=== PATIENT | male | born 1940 | race African-American/Black ===

== ENCOUNTER → 2016-02-22 | Day surgery (SDC) | payer OTHER ==
[~2016-02-22] MED LIST: AMLO10TA2; AMLO10TA2 PO; ASPI81TA44 PO; ATOR40TA59 PO; BUPR150T11 PO; CLOP75TA PO; Clonidine TD; DICL100G28; DILT180C29 PO; FAMO40TA57 PO; FENTANYL PF 100 MCG/2 ML VIAL. IV PRN; FINA5TAB4 PO; FLUT16SP NS; HYDR-2666; HYDR25TA9 PO; Hydrocodone/Acetaminophen PO; ISOS30TA4; ISOS30TA4 PO; IV RINGERS,LACTATED 1000ML 1,000 ML IV SCH; LIDOCAINE 1% 1 ML SYRINGE. ID PRN; LISI-334 PO; METO25TA4; METO25TA4 PO; MONT10TA9; OMEP40CA5 PO; ONDANSETRON PF 4 MG/2 ML VIAL. IV PRN; PRED20TA PO; PROCHLORPERAZINE 10 MG/2 ML VIAL. IV PRN; PROPOFOL 20 ML IV ONE
--- NOTE | 2016-02-22 09:55 | PDOC1 ---
HISTORY & PHYSICAL H&P Dimitris Felton 1940 02/03/2016 01:10 PM 02/13 [facility], [employer] OUR PATIENTS COME FIRST [address] [place] [address]. [phone] Patient: Dimitris Felton Date of : 1940 Date: 02/03/2016 1:10 PM Visit Type: Consult This 75 year old male presents for H/o colorectal polyp and H/o colon cancer. History of Present Illness: 1. H/o colorectal polyp Prior screening: colonoscopy. Risk Factors: personal history of colon cancer and h/o colon polyp. Pertinent negatives include abdominal pain, change in bowel habits, change in stool caliber, constipation, decreased appetite, diarrhea, melena, nausea, rectal bleeding, vomiting, weight gain and weight loss. Additional information: No family history of colon cancer, No family history of Crohn's/colitis, No NSAID/ASA use and Had colon polyp 2012 and a history of colon cancer in late . 2. H/o colon cancer Had colonic resection for colon cancer. Last colonoscopy 3013 had adenomatous colonic polyp. No complain now. No rectal bleeding. No constipation. No diarrhea. INTAKE COMMENTS: Intake Comments: Nurse Note: the pt is here today with a h/o colon polyps in 2012. PROBLEM LIST: Problem Description Onset Date Chronic Notes Essential hypertension 08/24/2011 Y Mapped from [facility] Chronic Conditions table on 09/02/2013 by the ICD9 to SNOMED Bulk Mapping Utility. The mapped diagnosis code was Hypertension, 401.9, added by Jessenia Coronado, with responsible provider Jessenia Coronado. Onset date 08/24/2011; last addressed on 02/15/2013. Hyperlipidemia 08/24/2011 Y Mapped from [facility] Chronic Conditions table on 2013 by the ICD9 to SNOMED Bulk Mapping Utility. The mapped diagnosis code was Hyperlipidemia, 272.4, added by Jessenia Coronado, with responsible provider Jessenia Coronado. Onset date 08/24/2011; last addressed on 02/15/2013. Hyperplasia of prostate 08/24/2011 Y Mapped from [facility] Chronic Conditions table on 09/02/2013 by the ICD9 to SNOMED Bulk Mapping Utility. The mapped diagnosis code was Prostatic hypertrophy, 600.90, added by Jessenia Coronado, with responsible provider Jessenia Coronado. Onset date 08/24/2011; last addressed on 06/01/2012. Coronary atherosclerosis 08/24/2011 Y Mapped from [facility] Chronic Conditions table on 09/02/2013 by the ICD9 to SNOMED Bulk Mapping Utility. The mapped diagnosis code was CAD (coronary artery disease), 414.00, added by Jessenia Coronado, with responsible provider Jessenia Coronado. Onset date 08/24/2011; last addressed on 04/2013. Gastroesophageal reflux disease 08/24/2011 Y Mapped from [facility] Chronic Conditions table on 09/02/2013 by the ICD9 to SNOMED Bulk Mapping Utility. The mapped diagnosis code was GERD (gastroesophageal reflux disease), 530.81, added by Jessenia Coronado, with responsible provider Jessenia Coronado. Onset date 08/24/2011; last addressed on 03/15/2013. Allergic rhinitis 08/24/2011 Y Mapped from [facility] Chronic Conditions table on 09/02 by the ICD9 to SNOMED Bulk Mapping Utility. The mapped diagnosis code was Allergic rhinitis, 477.9, added by Jessenia Coronado, with responsible provider Jessenia Coronado. Onset date 08/24/2011; last addressed on 08/24/2011. Osteoarthritis 08/24/2011 Y Mapped from [facility] Chronic Conditions table on 2013 by the ICD9 to SNOMED Bulk Mapping Utility. The mapped diagnosis code was Osteoarthritis, 715.90, added by Jessenia Coronado, with responsible provider Jessenia Coronado. Onset date 08/24/2011; last addressed on 02/15/2013. COPD (chronic obstructive pulmonary disease) 11/14/2014 Primary generalized (osteo)arthritis 10/08/2015 Polyarthralgia 10/08/2015 PSVT (paroxysmal supraventricular tachycardia) 09/02/2015 Benign hypertension with chronic kidney disease, stage III 06/26/2015 Y Low back pain 10/05/2015 Hypertensive kidney disease, stage III 09/02/2015 Y Bilateral knee pain 09/02/2015 Y PAST MEDICAL/SURGICAL HISTORY (Detailed) Disease/disorder Onset Date Management Date Comments 1993 Colectomy 1993 Right knee arthroscopy abdominal aortic aneurysm 10/2013 endovascular repair back surgery Benign prostatic hypertrophy Carcinoma of the colon 1994 surgery 1993 Coronary artery disease STENTS 2006 GERD Hyperlipidemia hyperparathyroidism partial parathyroidectomy Hypertension DIAGNOSTICS HISTORY: Test Ordered Interpretation Result completed ELECTROCARDIOGRAM, COMPLETE 10/03/[address] changes. no old EKG to compare. SB 10/03/2011 Colonoscopy 07/11/2012 abnormal Imp: diverticulosis of the colon, Colonic polyp( bx), BX: tubular adenoma 07/17/2012 Test Ordered Ordering Comments Modifier ELECTROCARDIOGRAM, COMPLETE 10/03/2011 Colonoscopy 07/11/2012 Medications (Active): Started Medication Directions Instruction Stopped 11/11/2015 amlodipine 10 mg tablet TAKE ONE TABLET BY MOUTH DAILY FOR BLOOD PRESSURE 10/05/2015 aspirin 81 mg tablet,delayed release take 1 tablet by oral route every day for heart 10/25/2013 Flonase 50 mcg/actuation nasal spray,suspension inhale 2 spray by Intranasal route every day in each nostril for allergies 11/11/2015 Imdur 30 mg tablet,extended release TAKE ONE TABLET BY MOUTH DAILY FOR HEART 11/11/2015 Lipitor 40 mg tablet TAKE ONE TABLET DAILY AT BEDTIME FOR CHOLESTEROL 11/11/2015 lisinopril 20 mg tablet TAKE (1) TABLET BY MOUTH TWICE DAILY FOR BLOOD PRESSURE 12/07/2015 metoprolol tartrate 25 mg tablet take 1 tablet by oral route 2 times every day 10/05/2015 Nitrostat 0.[address] 1 tablet (0.4MG) by sublingual route at the 1st sign of attack; may repeat every 5 min until relief ; if pain persists after 3 tablets in 15 min, prompt medical attention is recommended 11/11/2015 omeprazole 40 mg capsule,delayed release TAKE 1 CAPSULE ONCE A DAY BEFORE A MEAL FOR STOMACH oxycodone-acetaminophen 10 mg-325 mg tablet take 1 tablet by oral route every 6 hours as needed 11/11/2015 Plavix 75 mg tablet take 1 tablet by oral route every day 11/11/2015 Voltaren 1 % topical gel apply 4gram by topical route bid times every day to bilateral knees qid. 10/05/2015 Wellbutrin SR 150 mg tablet,sustained-release TAKE ONE TABLET BY MOUTH DAILY FOR DEPRESSION Allergies: Ingredient Reaction Medication Name Comment MORPHINE Hives/Skin Rash REVIEW OF SYSTEMS System Neg/Pos Details Constitutional Negative Chills, fever, malaise, weight gain and weight loss. ENMT Negative Sore throat. Eyes Negative Double vision. Respiratory Negative Dyspnea and wheezing. Cardio Negative Chest pain and irregular heartbeat/palpitations. GI Positive See HPI. GI Negative Abdominal pain, change in bowel habits, change in stool caliber, constipation, decreased appetite, diarrhea, melena, nausea, see HPI, rectal bleeding and vomiting. Negative Dysuria and hematuria. Endocrine Negative Cold intolerance and heat intolerance. Psych Negative Anxiety. Integumentary Negative Hives and rash. MS Negative Joint pain. Blake/Lymph Negative Easy bleeding and easy bruising. Allergic/Immuno Negative Food allergies. VITAL SIGNS Time BP mm/Hg Pulse /min Resp /min Temp F Ht ft Ht in Ht cm Wt lb Wt kg BMI kg/ m2 BSA m2 O2 Sat% 1:02 PM 136/72 74 97.5 6.0 3.00 190.50 234.20 106.231 29.27 97 MEASURED BY Time Measured by 1:02 PM Kelle Whyte PHYSICAL EXAM: Exam Findings Details Constitutional Normal Well developed. Eyes Normal Conjunctiva - Right: Normal, Left: Normal. Sclera - Right: Normal, Left: Normal. Nasopharynx Normal Lips/teeth/gums - Normal. Neck Exam Normal Inspection - Normal. Thyroid gland - Normal. Respiratory Normal Inspection - Normal. Auscultation - Normal. Cardiovascular Normal Regular rate and rhythm. No murmurs, gallops, or rubs. Vascular Normal Pulses - Carotids: Normal, Femoral: Normal, Dorsalis pedis: Normal. Abdomen Normal Inspection - Normal. Anterior palpation - No guarding. No abdominal tenderness. No hepatic enlargement. No splenic enlargement. No hernia. No ascites. Skin Normal Inspection - Normal. Extremity Normal No edema. Psychiatric * Oriented to time, place, person and situation. Psychiatric Normal Appropriate mood and effect. Assessment/Plan # Detail Type Description 1. Assessment History of colon cancer (Z85.038). Patient Plan await colonoscopy results. 2. Assessment History of colon polyps (Z86.010). [place] [facility] [place] Further diagnostic evaluations ordered today include(s) Colonoscopy to be performed today. He is to schedule a follow-up visit with Keila Coronado MD upon completion of work-up Electronically signed by: Keila Coronado MD 02/03/2016 02:28 PM Document generated by: Keila Coronado 02/03/2016 02:28 PM Arabella Painting MD, Family Practice; Willy Cordero MD Internal Medicine; Scottie Sorenson MD, Internal Medicine; Jessenia Coronado MD Internal Medicine; Keila Coronado MD, Gastroenterology; Marco Barr MD, Rheumatology, S. Ian Farris, Physical Medicine/Rehab Mahogany Patten APRN ------ \ 02/22/16 Patient seen and examined. No change in history and physical KEILA CORONADO MD Feb 22, 2016 09:55
--- NOTE | 2016-02-22 10:21 | PDOC4 ---
GI OP Report - Dr. Mott Date/Time DATE: 02/22/16 TIME: 10:19 Attending Physician Charly Mott MD Referring Physician Indications Personal history of malignant neoplasm of the colon Pre-Op See the Anesthesia note for documentation of the administered medications Procedures Colonoscopy Findings - Diverticulosis in the sigmoid colon and in the descending colon. - The examination was otherwise normal on direct and retroflexion views. - No specimens collected Plan - Discharge patient to home. - Patient has a contact number available for emergencies. The signs and symptoms of potential delayed complications were discussed with the patient. Return to normal activities tomorrow. Written discharge instructions were provided to the patient. - Resume regular diet. - Continue present medications. - Repeat colonoscopy in 3 years for surveillance. - Return to my office as needed. CHARLY MOTT MD Feb 22, 2016 10:21
[2016-02-22 10:30] VITALS: BP 153/98
== END | disposition home or self-care (01) ==
LOC: SURG 08:56
PROVIDERS: ATTEND Internal Medicine Gastroenterology
DX: K57.30 Diverticulosis of large intestine without perforation or abscess without bleeding (principal); I50.9 Heart failure, unspecified; E78.00 Pure hypercholesterolemia, unspecified; I10 Essential (primary) hypertension; E66.9 Obesity, unspecified; K21.9 Gastro-esophageal reflux disease without esophagitis; F17.200 Nicotine dependence, unspecified, uncomplicated; T82.897A Other specified complication of cardiac prosthetic devices, implants and grafts, initial encounter
CPT/HCPCS: 45378; J2704

== ENCOUNTER 2016-02-29 08:08 | Inpatient (IN) | payer OTHER ==
[~2016-02-29] VITALS: Ht 193 cm; Wt 107.2 kg
[~2016-02-29 08:08] MED LIST changes: -FENTANYL PF 100 MCG/2 ML VIAL. IV PRN; -IV RINGERS,LACTATED 1000ML 1,000 ML IV SCH; -LIDOCAINE 1% 1 ML SYRINGE. ID PRN; -ONDANSETRON PF 4 MG/2 ML VIAL. IV PRN; -PROCHLORPERAZINE 10 MG/2 ML VIAL. IV PRN; -PROPOFOL 20 ML IV ONE
[2016-02-29] MEDS ORDERED: ASPIRIN 81 MG TAB.CHEW PO ONE (08:30)
[2016-02-29] MEDS ORDERED: DILTIAZEM IV PUSH 25 MG/5 ML VIAL. IVP ONE (08:30)
[2016-02-29] MEDS ORDERED: DILTIAZEM 125 MG in IV DEXTROSE 5% 100 ML IV PRN (08:30)
[2016-02-29] MEDS ORDERED: ADENOSINE 6 MG/2 ML VIAL IV ONE ×2 (08:30→08:45)
--- NOTE | 2016-02-29 08:42 | PHYS DOC ---
Past Medical History Past Medical History: Cancer, High Cholesterol, Hypertension, NC, Other Additional Past Medical Histor: SVT ,colon cancer, abd aneurysm Past Surgical History: Other Additional Past Surgical Histo: colon cancer resection, cardiac stents, aneurysm repair (10/21/13) Alcohol Use: None Drug Use: None Adult General Chief Complaint Chief Complaint: CHEST PAIN HPI HPI Patient is a 75 year old male who presents with chest pain and SOB. Patient reports symptoms began ~0700 without provocation. He describes a substernal pressure without clear mitigating factors. He has not taken anything for symptoms at home. Has had prior similar episodes. Noted to be tachycardic (HR ~ 150) upon arrival; chart review shows h/o SVT, but it appears that he is no longer taking a beta patrick or CCB as it caused an issue (?bradycardia). Review of Systems Review of Systems Constitutional: Denies fever or chills Eyes: Denies change in visual acuity or eye pain HENT: Denies nasal congestion or sore throat Respiratory: Shortness of breath Cardiovascular: Chest pain, palpitations GI: Denies abdominal pain, nausea, vomiting, bloody stools or diarrhea : Denies dysuria or hematuria Musculoskeletal: Denies back pain or joint pain Integument: Denies rash or skin lesions Neurologic: Denies headache, focal weakness or sensory changes Current Medications Current Medications Current Medications Medications (Trade) Dose Ordered Sig/Avery Start Time Stop Time Status Last Admin Dose Admin Acetaminophen (Tylenol) 650 mg PRN Q4HRS PRN 02/29/16 09:30 03/01/16 09:29 Adenosine (Adenocard) 12 mg 1X ONCE 02/29/16 08:45 02/29/16 08:46 DC 02/29/16 08:42 12 MG Amlodipine Besylate (Norvasc) 10 mg HS 02/29/16 21:00 UNV Aspirin (Children'S Aspirin) 81 mg [id number] 03/01/16 08:00 UNV Atorvastatin Calcium (Lipitor) 40 mg HS 02/29/16 21:00 UNV Bupropion HCl (Wellbutrin Sr) 150 mg DAILY 03/01/16 09:00 UNV Clonidine HCl (Catapres Tts-2) 1 patch WEEKLY 03/07/16 09:00 UNV Clopidogrel Bisulfate (Plavix) 75 mg DAILY 03/01/16 09:00 UNV Diclofenac Sodium (Voltaren) 1 gisell QID 02/29/16 13:00 UNV Diltiazem HCl 10 mg 10 mg 1X ONCE 02/29/16 08:30 02/29/16 08:35 DC 02/29/16 09:02 10 MG Diltiazem HCl/ Dextrose (Cardizem) 125 ml @ 0 mls/hr CONT PRN 02/29/16 08:30 02/29/16 09:06 5 MLS/HR Fentanyl Citrate (Fentanyl 2ml Vial) 50 mcg PRN Q1HR PRN 02/29/16 09:30 Finasteride (Proscar) 5 mg HS 02/29/16 21:00 UNV Fluticasone Propionate (Flonase) 2 spray DAILY 03/01/16 09:00 UNV Isosorbide Mononitrate (Imdur) 30 mg DAILY 03/01/16 09:00 UNV Lisinopril (Prinivil) 20 mg BID 02/29/16 21:00 UNV Magnesium Oxide (Magnesium Oxide) 400 mg 1X ONCE 02/29/16 09:30 02/29/16 09:33 DC 02/29/16 10:10 400 MG Metoprolol Tartrate (Lopressor) 25 mg BID 02/29/16 21:00 UNV Montelukast Sodium (Singulair) 10 mg HS 02/29/16 21:00 UNV Ondansetron HCl (Zofran) 4 mg PRN Q8HRS PRN 02/29/16 09:30 03/01/16 09:29 Oxycodone/ Acetaminophen (Percocet 10/325) 1 tab PRN Q6HRS PRN 02/29/16 10:00 UNV Pantoprazole Sodium (Protonix) 40 mg DAILY 03/01/16 09:00 UNV Allergies Allergies Allergies Coded Allergies Type Severity Reaction Last Updated Verified morphine Allergy Intermediate "Hives" 02/22/16 Yes pneumococcal vaccine Adverse Reaction Intermediate Swelling 02/22/16 Yes Physical Exam Physical Exam Constitutional: Well developed, well nourished, non-toxic appearance HENT: Normocephalic, atraumatic, bilateral external ears normal Eyes: EOMI, conjunctiva normal, no discharge Neck: Normal range of motion, no stridor Cardiovascular: Tachycardic to 150, regular rhythm, no murmur Lungs & Thorax: Bilateral breath sounds clear to auscultation Abdomen: Bowel sounds normal, soft, non-distended, no TTP Skin: Warm, dry, no erythema, no rash Extremities: No obvious deformity, no edema Neurologic: Alert and oriented X 3, no gross deficits noted Current Patient Data Vital Signs Vital Signs Date Time Temp Pulse Resp B/P Pulse Ox O2 Delivery O2 Flow Rate FiO2 02/29/16 09:02 108 130/79 02/29/16 08:15 97.5 20 Room Air 97.5 Lab Values Laboratory Tests Test 02/29/16 08:55 White Blood Count 6.9x10^3/uL (4.0-11.0) Red Blood Count 4.72x10^6/uL (4.30-5.70) Hemoglobin 13.1g/dL (13.0-17.5) Hematocrit 41.3% (39.0-53.0) Mean Corpuscular Volume 88fL (79-100) Mean Corpuscular Hemoglobin 28pg (25-35) Mean Corpuscular Hemoglobin Concent 32g/dL (31-37) Red Cell Distribution Width 15.3% (11.5-14.5) H Platelet Count 128x10^3/uL (140-400) L Neutrophils (%) (Auto) 77% (31-73) H Lymphocytes (%) (Auto) 12% (24-48) L Monocytes (%) (Auto) 8% (0-9) Eosinophils (%) (Auto) 2% (0-3) Basophils (%) (Auto) 1% (0-3) Neutrophils # (Auto) 5.3x10^3uL (1.8-7.7) Lymphocytes # (Auto) 0.9x10^3/uL (1.0-4.8) L Monocytes # (Auto) 0.5x10^3/uL (0.0-1.1) Eosinophils # (Auto) 0.2x10^3/uL (0.0-0.7) Basophils # (Auto) 0.1x10^3/uL (0.0-0.2) Sodium Level 140mmol/L (136-145) Potassium Level 4.2mmol/L (3.5-5.1) Chloride Level 104mmol/L (98-107) Carbon Dioxide Level 27mmol/L (21-32) Anion Gap 9 (6-14) Blood Urea Nitrogen 21mg/dL (8-26) Creatinine 2.2mg/dL (0.7-1.3) H Estimated GFR (Cockcroft-Gault) 35.6 Glucose Level 139mg/dL (70-99) H Calcium Level 9.0mg/dL (8.5-10.1) Magnesium Level 1.7mg/dL (1.8-2.4) L Troponin I Quantitative < 0.017ng/mL (0.000-0.055) Thyroid Stimulating Hormone (TSH) 1.048uIU/mL (0.358-3.74) Laboratory Tests 02/29/16 08:55 Laboratory Tests 02/29/16 08:55 EKG EKG EKG - initial (my read): narrow complex tachycardia - SVT, rate 152, LAD, nonspecific ST changes EKG - after adenosine boluses (my read): sinus rhythm, rate 101, LAD, intervals wnl, nonspecific ST changes Radiology/Procedures Radiology/Procedures CXR: IMPRESSION: Volume loss in the left lower lobe compatible with atelectasis or pneumonia. Course & Med Decision Making Course & Med Decision Making Pertinent Labs and Imaging studies reviewed. (See chart for details) Patient is 75 year old male who presents with CP and SOB. Noted to have SVT with rate ~150. EKG, CXR, labs ordered. Patient given ASA. 6mg adenosine given with no change; additional 12mg given with subsequent conversion to sinus rhythm with rate 100-110. However his heart rate started to creep higher, so cardizem bolus given and gtt started with good results. Labs notable for mild hypomagnesemia, oral replacement ordered. CXR read as above; as patient does not have symptoms of pneumonia, no leukocytosis, no fever, will not treat. Discussed results with patient. Discussed with Dr. Mott, will admit under his care for further treatment and evaluation. Cardiology consult entered. Arlineon Disclaimer Dragon Disclaimer This electronic medical record was generated, in whole or in part, using a voice recognition dictation system. Departure Departure Impression: Primary Impression: SVT (supraventricular tachycardia) Disposition: ADMITTED INPATIENT Admitting Physician: Viky Mott Condition: STABLE Referrals: VIKY MOTT MD (PCP) KYUNG DENNEY MD Feb 29, 2016 08:42
[2016-02-29 09:03] LABS: BASO # 0.1 x10^3/uL (0.0-0.2); BASO % 1 % (0-3); EOS % 2 % (0-3); HEMATOCRIT 41.3 % (39.0-53.0); HEMOGLOBIN 13.1 g/dL (13.0-17.5); LYMPH # 0.9 x10^3/uL (1.0-4.8); LYMPH % 12 % (24-48); MEAN CORPUSCULAR HEMOGLOBIN 28 pg (25-35); MEAN CORPUSCULAR HGB CONC 32 g/dL (31-37); MEAN CORPUSCULAR VOLUME 88 fL (79-100); MONO % 8 % (0-9); NEUT % 77 % (31-73); PLATELET COUNT 128 x10^3/uL (140-400); RED BLOOD COUNT 4.72 x10^6/uL (4.30-5.70); RED CELL DISTRIBUTION WIDTH 15.3 % (11.5-14.5); WHITE BLOOD COUNT 6.9 x10^3/uL (4.0-11.0)
[2016-02-29 09:12] LABS: CREATININE 2.2 mg/dL (0.7-1.3); GFR 35.6; MAGNESIUM 1.7 mg/dL (1.8-2.4); POTASSIUM 4.2 mmol/L (3.5-5.1)
[2016-02-29] MEDS ORDERED: FENTANYL PF 100 MCG/2 ML VIAL. IV PRN (09:30)
[2016-02-29] MEDS ORDERED: MAGNESIUM OXIDE 400 MG TABLET PO ONE (09:30)
[2016-02-29] MEDS ORDERED: ACETAMINOPHEN 325 MG TABLET. PO PRN (09:30)
[2016-02-29] MEDS ORDERED: ONDANSETRON PF 4 MG/2 ML VIAL. IV PRN (09:30)
--- NOTE | 2016-02-29 09:43 | PDOC ---
Provider Note Provider Note Patient seen in ER.H&P to follow. The patient was seen and examined by me. Chart reviewed and plan of care formulated. Discussed with, reviewed and agree with DENTAL ASSISTING INSTRUCTOR's notes, plan of care and orders with modifications as necessary. For more details regarding further plans, please refer to the orders. VIKY MOTT MD Feb 29, 2016 09:43
--- NOTE | 2016-02-29 09:44 | RAD ---
Indication chest pain. Shortness of breath. A single view of the chest was obtained. Comparison is made to an examination 11/29/2015. The heart and pulmonary vessels are within normal limits. There is volume loss in the left lower lobe compatible with atelectasis or pneumonia. The right lung appears clear. Significant pleural fluid is not seen. There is no pneumothorax. IMPRESSION: Volume loss in the left lower lobe compatible with atelectasis or pneumonia.
--- NOTE | 2016-02-29 09:58 | EKG ---
[facility] [address] [place] [address] Test Date: 2016-02-29 Test Time: 08:16:02 Pat Name: LIAM MOSELEY Department: Room: Gender: M Bureau Director: : 1940 Requested By: KYUNG DENNEY Order Number: [id number] Reading MD: Demetria Black Measurements Intervals [place] Rate: 152 P: ID: QRS: -5 QRSD: 80 T: 50 QT: 290 QTc: 468 Interpretive Statements SUPRAVENTRICULAR TACHYCARDIA LEFTWARD AXISI ABNORMAL EKG Electronically Signed On 03-01-2016 9:39:24 ATOMIC PHYSICS PROFESSOR by Demetria Black
--- NOTE | 2016-02-29 09:59 | EKG ---
[facility] [address] [place] [address] Test Date: 2016-02-29 Test Time: 08:35:48 Pat Name: LIAM MOSELEY Department: Room: Gender: M Air Traffic Controller Center: : 1940 Requested By: KYUNG DENNEY Order Number: [id number] Reading MD: Demetria Black Measurements Intervals [place] Rate: 101 P: 7 MI: 182 QRS: -3 QRSD: 80 T: 66 QT: 334 QTc: 439 Interpretive Statements SINUS TACHYCARDIA LEFT ATRIAL ABNORMALITY LEFTWARD AXIS ABNORMAL ECG Electronically Signed On 03-01-2016 9:40:04 WHIRLEY OPERATOR by Demetria Black
[2016-02-29] MEDS ORDERED: OXYCODONE/APAP 10/325 TABLET. PO PRN (10:00)
[2016-02-29] MEDS ORDERED: METOPROLOL TART IMMED RELEASE 25 MG TABLET PO SCH (11:00)
[2016-02-29] MEDS ORDERED: CLONIDINE TTS-2 PATCH TD SCH (11:00)
[2016-02-29] MEDS ORDERED: CLOPIDOGREL BISULFATE 75 MG TABLET PO SCH (11:00)
[2016-02-29 11:27] VITALS: BP 131/84
[2016-02-29] MEDS: ASPIRIN 81 MG TAB.CHEW PO SCH (11:30)
--- NOTE | 2016-02-29 11:56 | PDOC2 ---
MORELIA CHÁVEZ SHUTTLER CAR 02/29/16 1156: CARDIAC CONSULT DATE OF CONSULT Date of Consult DATE: 02/29/16 TIME: 11:40 REASON FOR CONSULT Reason for Consult: SVT REFERRING PHYSICIAN Referring Physician: Chema SOURCE Source: Chart review, Patient HISTORY OF PRESENT ILLNESS HISTORY OF PRESENT ILLNESS This is a pleasant 75 yo male admitted for complains of palpitations. Reports that this morning around 0730 at rest, he started feeling like he has burp that would not come out and felt it stuck in his throat. Associated with this was nausea, diaphoresis, SOA, and mid chest tightness. This was intermittent until he got to ED in which he was noted with SVT that was treated successfully after 2nd adenosine converted to SR. He does drink caffeinated beverages but none too excessive. He smokes marijuana daily and has quit tobacco about 2 months ago. Denies a EOTH use and other recreational drugs. He failed to follow up in our office after his last admission last yr with the same problem and also to establish EP referral. He did end up with appointment with an EP about 2 months ago but denied to be seen due to insurance coverage. Upon admission in ED he was also given cardizem bolus and so far no notable bradycardia was seen which was the problem on his previous admission promoting discontinuation of BB as well as CCB and switched to norvasc. Currently he denies any discomfort. Denies any fever or chills. He did slipped on ice 3 days ago with no apparent injury. Denies any long distance travels and for the most part he does not have any significant changes to his activity tolerance. To add he recently had colonoscopy on 02/22/2016 which was ok and tolerated bowel prep. PAST MEDICAL HISTORY Past Medical History Cardiovascular: HTN, MS (with previous PCI - 2012), Hyperlipidemia, Valve insufficiency (mild MR/TR/AR), Other (PSVT; AAA with previous EVAR - 2013) Pulmonary: No pertinent hx CENTRAL NERVOUS SYSTEM: Other GI: Other (colon cancer with previous colon resection ), diverticulosis Heme/Onc: No pertinent hx Hepatobiliary: No pertinent hx Psych: No pertinent hx Musculoskeletal: Osteoarthritis Rheumatologic: No pertinent hx Infectious disease: No pertinent hx ENT: No pertinent hx Renal/: Chronic renal insuff (stage III), Benign prostatic enlarg., Other ( atrophic right kidney) Endocrine: No pertinent hx Dermatology: No pertinent hx PAST SURGICAL HISTORY Past Surgical History thyroid surgery, PCI, EVAR, 02/22/2016 colonoscopy FAMILY HISTORY Family History: Coronary Artery Disease SOCIAL HISTORY Social History Smoke: Quit 2 months ago. <1 pack per day (has smoked since age 16; max amt was 1 ppd; now about 8 cigarettes/day) ALCOHOL: none Drugs: Marijuana Lives: with Family CURRENT MEDICATIONS CURRENT MEDICATIONS Current Medications Medications (Trade) Dose Ordered Sig/Avery Route PRN Reason Start Time Stop Time Status Last Admin Dose Admin Aspirin (Children'S Aspirin) 324 mg 1X ONCE PO 02/29/16 08:30 02/29/16 08:35 DC 02/29/16 08:59 Adenosine (Adenocard) 6 mg 1X ONCE IV 02/29/16 08:30 02/29/16 08:35 DC 02/29/16 08:33 Diltiazem HCl 10 mg 10 mg 1X ONCE IVP 02/29/16 08:30 02/29/16 08:35 DC 02/29/16 09:02 Diltiazem HCl/ Dextrose (Cardizem) 125 ml @ 0 mls/hr CONT PRN IV SEE I/O RECORD 02/29/16 08:30 02/29/16 09:06 Adenosine (Adenocard) 12 mg 1X ONCE IV 02/29/16 08:45 02/29/16 08:46 DC 02/29/16 08:42 Magnesium Oxide (Magnesium Oxide) 400 mg 1X ONCE PO 02/29/16 09:30 02/29/16 09:33 DC 02/29/16 10:10 ALLERGIES ALLERGIES: Coded Allergies: morphine (Verified Allergy, Intermediate, "Hives", 02/22/16) pneumococcal vaccine (Verified Adverse Reaction, Intermediate, Swelling, ) ROS Review of System 14 point ROS evaluated with pertinent positives noted per HPI PHYSICAL EXAM General: Alert, Oriented X3, Cooperative, No acute distress HEENT: Atraumatic, Mucous membr. moist/pink Lungs: Clear to auscultation, Normal air movement Heart: Regular rate, Normal S1, Normal S2, Other (2/6 systolic murmur to LLS border) Abdomen: Soft Extremities: No cyanosis, No edema Skin: No rashes, No breakdown, No significant lesion Neuro: Normal speech, Sensation intact Psych/Mental Status: Mental status NL, Mood NL MUSCULOSKELETAL: Full range of motion without pain, Osteoarthritic changes both hands VITALS VITALS Vital Signs Date Time Temp Pulse Resp B/P Pulse Ox O2 Delivery O2 Flow Rate FiO2 02/29/16 11:27 97.7 80 20 131/84 98 Room Air 97.7 LABS Lab: Laboratory Tests Test 02/29/16 08:55 White Blood Count 6.9x10^3/uL (4.0-11.0) Red Blood Count 4.72x10^6/uL (4.30-5.70) Hemoglobin 13.1g/dL (13.0-17.5) Hematocrit 41.3% (39.0-53.0) Mean Corpuscular Volume 88fL (79-100) Mean Corpuscular Hemoglobin 28pg (25-35) Mean Corpuscular Hemoglobin Concent 32g/dL (31-37) Red Cell Distribution Width 15.3% (11.5-14.5) Platelet Count 128x10^3/uL (140-400) Neutrophils (%) (Auto) 77% (31-73) Lymphocytes (%) (Auto) 12% (24-48) Monocytes (%) (Auto) 8% (0-9) Eosinophils (%) (Auto) 2% (0-3) Basophils (%) (Auto) 1% (0-3) Neutrophils # (Auto) 5.3x10^3uL (1.8-7.7) Lymphocytes # (Auto) 0.9x10^3/uL (1.0-4.8) Monocytes # (Auto) 0.5x10^3/uL (0.0-1.1) Eosinophils # (Auto) 0.2x10^3/uL (0.0-0.7) Basophils # (Auto) 0.1x10^3/uL (0.0-0.2) Sodium Level 140mmol/L (136-145) Potassium Level 4.2mmol/L (3.5-5.1) Chloride Level 104mmol/L (98-107) Carbon Dioxide Level 27mmol/L (21-32) Anion Gap 9 (6-14) Blood Urea Nitrogen 21mg/dL (8-26) Creatinine 2.2mg/dL (0.7-1.3) Estimated GFR (Cockcroft-Gault) 35.6 Glucose Level 139mg/dL (70-99) Calcium Level 9.0mg/dL (8.5-10.1) Magnesium Level 1.7mg/dL (1.8-2.4) Troponin I Quantitative < 0.017ng/mL (0.000-0.055) Thyroid Stimulating Hormone (TSH) 1.048uIU/mL (0.358-3.74) ECHOCARDIOGRAM ECHOCARDIOGRAM <Conclusion> Left ventricle systolic function is normal. The Ejection Fraction is estimated at 65-70%. Transmitral Doppler flow pattern is Grade I-abnormal relaxation pattern. There is normal LV segmental wall motion. Trace aortic regurgitation. Trace to mild mitral regurgitation. Trace tricuspid regurgitation. There is no evidence of significant pericardial effusion. DATE: 08/28/15 1520 STRESS TEST STRESS TEST Conclusion 1. No evidence of EKG changes with stress. 2. Normal myocardial perfusion at stress/rest. 3. Low risk study. 4. Normal EF at > 70%. DATE: 12/01/15 1243 ASSESSMENT/PLAN ASSESSMENT/PLAN 1. PSVT with prior multiple hx and failed follow up (see HPI) Corrected by second dose of adenosine with addition of cardizem bolus, currently on IV cardizem Now on SR. Antiarrhythmics held in the past due to significant bradycardia. I would suspect due to simultaneous use of cardizem, metoprolol and clonidine. Will DC IV cardizem and start on IR 30 mg q6hrs. Will monitor and note response for any bradyarrhythmias. Will carry out event monitor to be initiated prior to DC, 2 week outpt monitoring pending result of overnight monitoring. then will make EP referral Discussed significantly about treatment plan with pt and adherence to plan and also would emphasize physical maneuvers to abort any PSVT episodes. 2. Chest pain Related to palpitations Recent MPI 11/2015 unremarkable for perfusion defects. Recent TTE with normal EF and wall motion. 3. HTN Stop amlodipine, continue on lisinopril and start on cardizem IR. Verified no antiarrhythmics through [facility]. Will try to compare with outpt PCP's list when available. Discussed with pt and clearly report no longer using clonidine patch. 4. HLD on statin 5. tobacco abuse smoking cessation advised and reinforced and stopped 2 months ago 6. AAA with previous EVAR 10/2013 7. CKD, stage III 8. Substance abuse Daily use of marijuana Discussed cessation. 9. Low back pain On chronic opioid use On ASA. Plavix on hold due to planned outpt epidural injection. 10. Hypomagnesemia Replace Mg. Problems: TAWANDA NELSON MD 02/29/16 1710: CARDIAC CONSULT ALLERGIES ALLERGIES: Coded Allergies: morphine (Verified Allergy, Intermediate, "Hives", 02/22/16) pneumococcal vaccine (Verified Adverse Reaction, Intermediate, Swelling, ) ASSESSMENT/PLAN ASSESSMENT/PLAN Patient seen and examined. Agree with PUPIL PERSONNEL SERVICES DIRECTOR's assessment and plan. Patient with recurrent SVT, presently back in sinus rhythm. Start flecainide for rhythm maintenance. Continue Cardizem. We will consider outpatient referral to EP for possible ablation. Chest pain most probably secondary to tachycardia. Recent stress test did not show any significant ischemia. Thank you for your consultation. Problems: MORELIA CHÁVEZ APRN Feb 29, 2016 11:56 TAWANDA NELSON MD Feb 29, 2016 17:10
[2016-02-29] MEDS ORDERED: MAGNESIUM SULFATE 1GM 100 ML IV ONE (12:00)
[2016-02-29 15:00] VITALS: BP 121/67
[2016-02-29] MEDS: DILTIAZEM HCL 30 MG TABLET PO SCH ×3 (15:16→23:34)
[2016-02-29] MEDS: buPROPion SR 150 MG TABLET.SA PO SCH (15:16)
[2016-02-29] MEDS: PANTOPRAZOLE 40 MG TABLET. PO SCH (15:17)
[2016-02-29] MEDS: ISOSORBIDE MONONITRATE ER 30 MG TAB.ER.24H PO SCH (15:17)
[2016-02-29] MEDS: LISINOPRIL 20 MG TABLET PO SCH ×2 (15:17→21:14)
[2016-02-29] MEDS: DICLOFENAC SODIUM 1% TOPICAL GEL 100GM TUBE. TP SCH ×3 (15:18→21:15)
[2016-02-29] MEDS: FLUTICASONE 50MCG/NASAL SPRAY 16GM BOTTLE. NS SCH (15:21)
--- NOTE | 2016-02-29 18:14 | PDOC1 ---
JOSE ROBERTO ROSE ELECTRONIC SPECIALIST 02/29/161812: HISTORY AND PHYSICAL Chief Complaint Chief Complaint This 75 year old male has been admitted with a chief complaint of chest pain. He reports onset of needing to belch at 7am today and could not. He then began sweating, developed substernal chest pain radiating into neck/ throat and dyspnea. Negative for nausea. He was brought to [facility] per private vehicle and when telemetry obtained he was in SVT 150s. He was given Adenosine x2 doses, loading dose Cardizem IV and infusion started. Currently he is SR rate 80s in the ED. A CXR was negative. Troponin negative and EKG non spec ST changes. Mg 1.7 with Mag Ox 400mg po given. TSH WNL. The ER physician note indicates he is not taking amlodipine nor metoprolol. Per our office records both the medications are to still be current. He is admitted to [facility] and cardiology has been consulted. Problem List Problems Medical Problems: (1) Chest pain Status: Acute (2) SOB (shortness of breath) Status: Acute (3) SVT (supraventricular tachycardia) Status: Acute (4) SVT (supraventricular tachycardia) Status: Acute Past Medical History Cardiovascular: CAD, HTN, [place], Hyperlipidemia, Valve insufficiency (mild MR, trace AR ), Other (AAA 5.8cm endograft +) CENTRAL NERVOUS SYSTEM: Other GI: Other Heme/Onc: Cancer (colon cancer with h/o resection/chemoradiation post) Musculoskeletal: Osteoarthritis (severe bilateral knees) Renal/: Chronic renal insuff (CKD III), Benign prostatic enlarg., Other ( atrophic R kidney ) Endocrine: Hyperparathyroidism (secondary to CKD III) Past Surgical History Past Surgical History: Other (endograft 10/2013) Past Family History Family History: Coronary Artery Disease Past Social History PSH former tobacco, no ETOH or illicit drug use Review of Symptoms Review of Symptoms A 14 point ROS was completed with the following noted as positive: R UE tingling , pin pricking sensation, chest pain substernal with radiation to neck/throat, need to belch and could not, +dyspnea, + sweating Other systems reviewed and negative. Medications Medications reviewed and reconciled. Allergy Allergies Coded Allergies Type Severity Reaction Last Updated Verified morphine Allergy Intermediate "Hives" 02/22/16 Yes pneumococcal vaccine Adverse Reaction Intermediate Swelling 02/22/16 Yes Physical Exam Physical Exam General appearance - alert,well appearing, and in no distress Mental Status - alert, oriented to person, place, and time, affect appropriate to mood Head - normal Chest - clear to auscultation, no wheezes, rales or rhonchi, symmetric air entry Heart - S1 and S2 normal Abdomen - soft, nontender, nondistended, no masses or organomegaly Neurological - no acute focal neurological deficit Musculoskeletal - no muscular tenderness noted Extremities - no pedal edema Skin - warm and dry VTE Prophylaxis Ordered VTE Prophylaxis Devices: No VTE Pharmacological Prophylaxi: No Assessment Labs Laboratory Tests Test 02/29/16 08:55 02/29/16 15:14 White Blood Count 6.9x10^3/uL (4.0-11.0) Red Blood Count 4.72x10^6/uL (4.30-5.70) Hemoglobin 13.1g/dL (13.0-17.5) Hematocrit 41.3% (39.0-53.0) Mean Corpuscular Volume 88fL (79-100) Mean Corpuscular Hemoglobin 28pg (25-35) Mean Corpuscular Hemoglobin Concent 32g/dL (31-37) Red Cell Distribution Width 15.3% (11.5-14.5) Platelet Count 128x10^3/uL (140-400) Neutrophils (%) (Auto) 77% (31-73) Lymphocytes (%) (Auto) 12% (24-48) Monocytes (%) (Auto) 8% (0-9) Eosinophils (%) (Auto) 2% (0-3) Basophils (%) (Auto) 1% (0-3) Neutrophils # (Auto) 5.3x10^3uL (1.8-7.7) Lymphocytes # (Auto) 0.9x10^3/uL (1.0-4.8) Monocytes # (Auto) 0.5x10^3/uL (0.0-1.1) Eosinophils # (Auto) 0.2x10^3/uL (0.0-0.7) Basophils # (Auto) 0.1x10^3/uL (0.0-0.2) Sodium Level 140mmol/L (136-145) Potassium Level 4.2mmol/L (3.5-5.1) Chloride Level 104mmol/L (98-107) Carbon Dioxide Level 27mmol/L (21-32) Anion Gap 9 (6-14) Blood Urea Nitrogen 21mg/dL (8-26) Creatinine 2.2mg/dL (0.7-1.3) Estimated GFR (Cockcroft-Gault) 35.6 Glucose Level 139mg/dL (70-99) Calcium Level 9.0mg/dL (8.5-10.1) Magnesium Level 1.7mg/dL (1.8-2.4) Troponin I Quantitative < 0.017ng/mL (0.000-0.055) 0.022ng/mL (0.000-0.055) Thyroid Stimulating Hormone (TSH) 1.048uIU/mL (0.358-3.74) Laboratory Tests Test 02/29/16 08:55 02/29/16 15:14 White Blood Count 6.9x10^3/uL (4.0-11.0) Red Blood Count 4.72x10^6/uL (4.30-5.70) Hemoglobin 13.1g/dL (13.0-17.5) Hematocrit 41.3% (39.0-53.0) Mean Corpuscular Volume 88fL (79-100) Mean Corpuscular Hemoglobin 28pg (25-35) Mean Corpuscular Hemoglobin Concent 32g/dL (31-37) Red Cell Distribution Width 15.3% (11.5-14.5) Platelet Count 128x10^3/uL (140-400) Neutrophils (%) (Auto) 77% (31-73) Lymphocytes (%) (Auto) 12% (24-48) Monocytes (%) (Auto) 8% (0-9) Eosinophils (%) (Auto) 2% (0-3) Basophils (%) (Auto) 1% (0-3) Neutrophils # (Auto) 5.3x10^3uL (1.8-7.7) Lymphocytes # (Auto) 0.9x10^3/uL (1.0-4.8) Monocytes # (Auto) 0.5x10^3/uL (0.0-1.1) Eosinophils # (Auto) 0.2x10^3/uL (0.0-0.7) Basophils # (Auto) 0.1x10^3/uL (0.0-0.2) Sodium Level 140mmol/L (136-145) Potassium Level 4.2mmol/L (3.5-5.1) Chloride Level 104mmol/L (98-107) Carbon Dioxide Level 27mmol/L (21-32) Anion Gap 9 (6-14) Blood Urea Nitrogen 21mg/dL (8-26) Creatinine 2.2mg/dL (0.7-1.3) Estimated GFR (Cockcroft-Gault) 35.6 Glucose Level 139mg/dL (70-99) Calcium Level 9.0mg/dL (8.5-10.1) Magnesium Level 1.7mg/dL (1.8-2.4) Troponin I Quantitative < 0.017ng/mL (0.000-0.055) 0.022ng/mL (0.000-0.055) Thyroid Stimulating Hormone (TSH) 1.048uIU/mL (0.358-3.74) Plan Plan Impression: 1. SVT 2. chest pain 3. HTN 4. Diastolic dysfunction with h/o CAD 5. h/o CAD old [place] 6. hyperlipidemia 7. CKD III with atrophic R kidney 8. secondary hyperparathyroidism 9. AAA with h/o endograft repair PLAN: SVT cardizem infusion cardiology consult resume metoprolol, Cardizem oral on hold while IV infusing chest pain cardiology consulted troponin neg EKG non spec ST changes HTN controlled CKD III Admit BUN 21 Cr 2.2 Mg 1.7 thrombocytopenia chronic Admit plt 128 CXR abnormal RLL atelectasis, symptoms do not support pneumonia. DVT/GI prophylaxis ambulate PPI For more details regarding further plans, please refer to the orders. VIKY MOTT MD 03/01/16 0904: HISTORY AND PHYSICAL Plan Plan The patient was seen and examined by me. Chart reviewed and plan of care formulated. Discussed with, reviewed and agree with ADVISER SALES's notes, plan of care and orders with modifications as necessary. For more details regarding further plans, please refer to the orders. JOSE ROBERTO ROSE APRN Feb 29, 2016 18:13 VIKY MOTT MD Mar 01, 2016 09:04
[2016-02-29 19:45] VITALS: BP 148/68
[2016-02-29] MEDS ORDERED: MONTELUKAST SODIUM 10 MG TABLET. PO SCH (21:00)
[2016-02-29] MEDS ORDERED: ATORVASTATIN CALCIUM 40 MG TABLET. PO SCH (21:00)
[2016-02-29] MEDS ORDERED: FINASTERIDE 5 MG TABLET PO SCH (21:00)
[2016-02-29] MEDS ORDERED: AMLODIPINE BESYLATE 10 MG TABLET PO SCH (21:00)
[2016-02-29] MEDS: FLECAINIDE 50 MG TABLET. PO SCH (21:15)
[2016-02-29 23:00] VITALS: BP 142/84
[2016-03-01 03:00] VITALS: BP 137/73
[2016-03-01 03:49] LABS: BASO % 0 % (0-3); EOS % 3 % (0-3); HEMATOCRIT 36.9 % (39.0-53.0); LYMPH # 1.2 x10^3/uL (1.0-4.8); LYMPH % 18 % (24-48); MEAN CORPUSCULAR HEMOGLOBIN 28 pg (25-35); MEAN CORPUSCULAR HGB CONC 33 g/dL (31-37); MEAN CORPUSCULAR VOLUME 87 fL (79-100); MONO % 9 % (0-9); NEUT % 69 % (31-73); PLATELET COUNT 125 x10^3/uL (140-400); RED BLOOD COUNT 4.25 x10^6/uL (4.30-5.70); RED CELL DISTRIBUTION WIDTH 15.3 % (11.5-14.5); WHITE BLOOD COUNT 6.5 x10^3/uL (4.0-11.0)
[2016-03-01 04:06] LABS: CALCIUM 8.3 mg/dL (8.5-10.1); CREATININE 2.1 mg/dL (0.7-1.3); GFR 37.5; POTASSIUM 3.9 mmol/L (3.5-5.1)
[2016-03-01] MEDS: DILTIAZEM HCL 30 MG TABLET PO SCH (05:26)
--- NOTE | 2016-03-01 07:49 | PDOC3 ---
ANGIE-JOSE ROBERTO LANG SCHOOL FUNDRAISING DIRECTOR 03/01/16 0749: IM DISCHARGE & PROGRESS NOTES Date of Admission Date of Admission Date of Admission: Feb 29, 2016 at 09:28 Date of Discharge Date of Discharge 03/01/16 Primary Diagnosis Primary Diagnosis Final Diagnosis 1. PSVT 2. chest pain secondary to PSVT 3. HTN 4. Diastolic dysfunction with h/o CAD 5. h/o CAD old [place] 6. hyperlipidemia 7. CKD III with atrophic R kidney 8. secondary hyperparathyroidism 9. AAA with h/o endograft repair 10. hypomagnesia resolved Consults Consults Rosas Gould MD Procedures Procedures None Labs Labs Laboratory Tests Test 02/29/16 08:55 02/29/16 15:14 02/29/16 21:10 03/01/16 03:30 White Blood Count 6.9x10^3/uL (4.0-11.0) 6.5x10^3/uL (4.0-11.0) Red Blood Count 4.72x10^6/uL (4.30-5.70) 4.25x10^6/uL (4.30-5.70) Hemoglobin 13.1g/dL (13.0-17.5) 12.0g/dL (13.0-17.5) Hematocrit 41.3% (39.0-53.0) 36.9% (39.0-53.0) Mean Corpuscular Volume 88fL (79-100) 87fL (79-100) Mean Corpuscular Hemoglobin 28pg (25-35) 28pg (25-35) Mean Corpuscular Hemoglobin Concent 32g/dL (31-37) 33g/dL (31-37) Red Cell Distribution Width 15.3% (11.5-14.5) 15.3% (11.5-14.5) Platelet Count 128x10^3/uL (140-400) 125x10^3/uL (140-400) Neutrophils (%) (Auto) 77% (31-73) 69% (31-73) Lymphocytes (%) (Auto) 12% (24-48) 18% (24-48) Monocytes (%) (Auto) 8% (0-9) 9% (0-9) Eosinophils (%) (Auto) 2% (0-3) 3% (0-3) Basophils (%) (Auto) 1% (0-3) 0% (0-3) Neutrophils # (Auto) 5.3x10^3uL (1.8-7.7) 4.5x10^3uL (1.8-7.7) Lymphocytes # (Auto) 0.9x10^3/uL (1.0-4.8) 1.2x10^3/uL (1.0-4.8) Monocytes # (Auto) 0.5x10^3/uL (0.0-1.1) 0.6x10^3/uL (0.0-1.1) Eosinophils # (Auto) 0.2x10^3/uL (0.0-0.7) 0.2x10^3/uL (0.0-0.7) Basophils # (Auto) 0.1x10^3/uL (0.0-0.2) 0.0x10^3/uL (0.0-0.2) Sodium Level 140mmol/L (136-145) 139mmol/L (136-145) Potassium Level 4.2mmol/L (3.5-5.1) 3.9mmol/L (3.5-5.1) Chloride Level 104mmol/L (98-107) 104mmol/L (98-107) Carbon Dioxide Level 27mmol/L (21-32) 25mmol/L (21-32) Anion Gap 9 (6-14) 10 (6-14) Blood Urea Nitrogen 21mg/dL (8-26) 20mg/dL (8-26) Creatinine 2.2mg/dL (0.7-1.3) 2.1mg/dL (0.7-1.3) Estimated GFR (Cockcroft-Gault) 35.6 37.5 Glucose Level 139mg/dL (70-99) 106mg/dL (70-99) Calcium Level 9.0mg/dL (8.5-10.1) 8.3mg/dL (8.5-10.1) Magnesium Level 1.7mg/dL (1.8-2.4) 1.9mg/dL (1.8-2.4) Troponin I Quantitative < 0.017ng/mL (0.000-0.055) 0.022ng/mL (0.000-0.055) < 0.017ng/mL (0.000-0.055) Thyroid Stimulating Hormone (TSH) 1.048uIU/mL (0.358-3.74) Medications Medications Medications reviewed and reconciled for discharge. Brief hospital course Brief hospital course This 75 year old male who presented with chest pain and palpitations was admitted. The following is a summary of his treatment plan: PLAN: PSVT cardizem infusion DC cardiology consult resume metoprolol, Cardizem oral on hold while IV infusing-stopped 02/28 metoprolol DC Cardizem 60 q6h Tambicor 100mg q12h event monitor per cardiology f/u per their instructions chest pain due to PSVT cardiology consulted troponin neg EKG non spec ST changes HTN controlled Clonidine, amlodipine, metoprolol DC Continue Lisinopril, CKD III Admit BUN 21 03/01 20 Cr 2.2 2.1 Mg 1.7 1.9 thrombocytopenia chronic Admit plt 128 03/01 125 CXR abnormal RLL atelectasis, symptoms do not support pneumonia. f/u outpatient DVT/GI prophylaxis ambulate PPI For more details regarding the past history, family history, social history, surgical history and other details, please refer to History and Physical. Dimitris will be discharged home. He is advised to keep appt with Dr. Gould out patient and to bring all medications to his SANDIP appt. HTN will be monitored with medications adjustment as needed. Please see discharge orders. . Subjective feeling fine Objective no distress Vitals Vital Signs Date Time Temp Pulse Resp B/P Pulse Ox O2 Delivery O2 Flow Rate FiO2 03/01/16 05:26 71 137/78 03/01/16 03:00 98.2 18 96 Room Air 98.2 Physical Exam Physical exam: General appearance - alert,well appearing, and in no distress Mental Status - alert, oriented to person, place, and time, affect appropriate to mood Head - normal Chest - clear to auscultation, no wheezes, rales or rhonchi, symmetric air entry Heart - S1 and S2 normal Abdomen - soft, nontender, nondistended, no masses or organomegaly Neurological - no acute focal neurological deficit Musculoskeletal - no muscular tenderness noted Extremities - no pedal edema Skin - warm and dry Medications Medications reviewed. Allergy Allergies Coded Allergies Type Severity Reaction Last Updated Verified morphine Allergy Intermediate "Hives" 02/22/16 Yes pneumococcal vaccine Adverse Reaction Intermediate Swelling 02/22/[address] Coronado or Ruperto on Monday this week. Disposition: Home Comments Discharge Management - 35 minutes. For other details please refer to discharge instructions VIKY CORONADO MD 03/01/16 0905: IM DISCHARGE & PROGRESS NOTES Brief hospital course Comments The patient was seen and examined by me. Chart reviewed and plan of care formulated. Discussed with, reviewed and agree with INSURANCE JOB TITLES's notes, plan of care and orders with modifications as necessary. Discharge Management - 35 minutes. JOSE ROBERTO ROSE APRN Mar 01, 2016 07:49 VIKY CORONADO MD Mar 01, 2016 09:05
--- NOTE | 2016-03-01 07:51 | DISCH ---
DISCHARGE INSTRUCTIONS Condition on Discharge Condition on Discharge: Stable Activity After Discharge Activity Instructions for Disc: Activity as tolerated Diet after Discharge Diet after Discharge: Cardiac Checks after Discharge DC Comment: Bring all medications to appointment. Contacting the DRTete after DC Call your doctor for: Concerns you may have Follow-Up Follow up with: Dr. Coronado or Ruperto on Monday Follow Up With: Dr. Gould per his instructions JOSE ROBERTO ROSE APRN Mar 01, 2016 07:51
[2016-03-01] MEDS ORDERED: DILT30TA26 PO (07:54)
[2016-03-01] MEDS ORDERED: FLEC50TA PO (07:54)
[2016-03-01] MEDS ORDERED: OXYC1TAB9 PO (07:54)
[2016-03-01 07:55] VITALS: BP 140/72
[2016-03-01] MEDS: FLUTICASONE 50MCG/NASAL SPRAY 16GM BOTTLE. NS SCH (09:00)
--- NOTE | 2016-03-01 09:10 | PDOC ---
CARDIO Progress Notes Date and Time Date of Service 03/01/2016 Time of Evaluation 0855 Subjective Subjective: No Chest Pain, No shortness of breath, No Palpitations Vitals Vitals Vital Signs Date Time Temp Pulse Resp B/P Pulse Ox O2 Delivery O2 Flow Rate FiO2 03/01/16 07:55 98.5 74 20 140/72 95 Room Air 98.5 Weight Weight [ ] Input and Output Intake and Output Intake and Output 03/01/16 07:00 Intake Total 1100 ml Output Total 1000 ml Balance 100 ml Intake Oral 1100 ml Output Urine Total 1000 ml Laboratory Labs Laboratory Tests Test 02/29/16 15:14 02/29/16 21:10 03/01/16 03:30 Troponin I Quantitative 0.022ng/mL (0.000-0.055) < 0.017ng/mL (0.000-0.055) White Blood Count 6.5x10^3/uL (4.0-11.0) Red Blood Count 4.25x10^6/uL (4.30-5.70) Hemoglobin 12.0g/dL (13.0-17.5) Hematocrit 36.9% (39.0-53.0) Mean Corpuscular Volume 87fL (79-100) Mean Corpuscular Hemoglobin 28pg (25-35) Mean Corpuscular Hemoglobin Concent 33g/dL (31-37) Red Cell Distribution Width 15.3% (11.5-14.5) Platelet Count 125x10^3/uL (140-400) Neutrophils (%) (Auto) 69% (31-73) Lymphocytes (%) (Auto) 18% (24-48) Monocytes (%) (Auto) 9% (0-9) Eosinophils (%) (Auto) 3% (0-3) Basophils (%) (Auto) 0% (0-3) Neutrophils # (Auto) 4.5x10^3uL (1.8-7.7) Lymphocytes # (Auto) 1.2x10^3/uL (1.0-4.8) Monocytes # (Auto) 0.6x10^3/uL (0.0-1.1) Eosinophils # (Auto) 0.2x10^3/uL (0.0-0.7) Basophils # (Auto) 0.0x10^3/uL (0.0-0.2) Sodium Level 139mmol/L (136-145) Potassium Level 3.9mmol/L (3.5-5.1) Chloride Level 104mmol/L (98-107) Carbon Dioxide Level 25mmol/L (21-32) Anion Gap 10 (6-14) Blood Urea Nitrogen 20mg/dL (8-26) Creatinine 2.1mg/dL (0.7-1.3) Estimated GFR (Cockcroft-Gault) 37.5 Glucose Level 106mg/dL (70-99) Calcium Level 8.3mg/dL (8.5-10.1) Magnesium Level 1.9mg/dL (1.8-2.4) Physical Exam HEENT: Neck Supple W Full Motion Chest: Symmetric LUNGS: Clear to Auscultation Heart: S1S2, RRR Abdomen: Soft N/T Extremities: No Calf Tenderness Neurology: alert, oriented, follow commands Assessment Assessment 1. PSVT with prior multiple hx and failed follow up (see HPI) No bradycardic episodes overnight. No other ectopies. 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 Has not been taking all of above at home. SVT aborted with adenosine and cardizem Discussed with EP, Dr. Ayala, agreed to continue cardizem CD to 120 mg po daily His office will call pt for appt in 2 weeks for further discussion for possible EP ablation, so no antiarrhythmics recommended at this time Do not restart BB. No further outpt event monitoring is necessary at this time. With confirmed CAD, no flecainide warranted. Follow up in office in 4 weeks. 2. Chest pain: confirmed CAD in the past Related to palpitations Recent MPI 11/2015 unremarkable for perfusion defects. Recent TTE with normal EF and wall motion. Continue with secondary prevention. 3. HTN Controlled, continue current regimen. 4. HLD on statin 5. tobacco abuse smoking cessation advised and reinforced and stopped 2 months ago 6. AAA with previous EVAR 10/2013 7. CKD, stage III 8. Substance abuse Daily use of marijuana Discussed cessation. 9. Low back pain On chronic opioid use On ASA. Plavix on hold due to planned outpt epidural injection. 10. Hypomagnesemia Replaced MORELIA CHÁVEZ MOTORCOACH DRIVER Mar 01, 2016 09:10
[2016-03-01] MEDS: DICLOFENAC SODIUM 1% TOPICAL GEL 100GM TUBE. TP SCH (09:34)
[2016-03-01] MEDS: FLECAINIDE 50 MG TABLET. PO SCH (09:35)
[2016-03-01] MEDS: LISINOPRIL 20 MG TABLET PO SCH (09:35)
[2016-03-01] MEDS: ISOSORBIDE MONONITRATE ER 30 MG TAB.ER.24H PO SCH (09:35)
[2016-03-01] MEDS: ASPIRIN 81 MG TAB.CHEW PO SCH (09:35)
[2016-03-01] MEDS: buPROPion SR 150 MG TABLET.SA PO SCH (09:35)
[2016-03-01] MEDS: PANTOPRAZOLE 40 MG TABLET. PO SCH (09:35)
[2016-03-01 10:47] VITALS: BP 140/79
[2016-03-01] MEDS ORDERED: DILTIAZEM HCL 120 MG CAP.ER.24H PO SCH (11:00)
[2016-03-01] MEDS ORDERED: DILT120C97 PO (11:10)
[2016-03-01] MEDS ORDERED: DILT180C29 PO (11:22)
[2016-03-01 15:24] VITALS: BP 138/81
== END 2016-03-01 15:30 | disposition home or self-care (01) | DRG 309 ==
LOC: ER 08:08 → 2 NORTH 09:28
PROVIDERS: ADMIT Internal Medicine; ATTEND Internal Medicine
DX: I47.1 Supraventricular tachycardia (principal); N25.81 Secondary hyperparathyroidism of renal origin; J98.11 Atelectasis; I25.10 Atherosclerotic heart disease of native coronary artery without angina pectoris; N18.3 Chronic kidney disease, stage 3 (moderate); K57.90 Diverticulosis of intestine, part unspecified, without perforation or abscess without bleeding; I12.9 Hypertensive chronic kidney disease with stage 1 through stage 4 chronic kidney disease, or unspecified chronic kidney disease; E78.00 Pure hypercholesterolemia, unspecified; F12.90 Cannabis use, unspecified, uncomplicated; M19.90 Unspecified osteoarthritis, unspecified site; E78.5 Hyperlipidemia, unspecified; Z85.038 Personal history of other malignant neoplasm of large intestine; Z82.49 Family history of ischemic heart disease and other diseases of the circulatory system; E83.42 Hypomagnesemia; Z88.5 Allergy status to narcotic agent; I25.2 Old myocardial infarction; Z88.7 Allergy status to serum and vaccine; Z72.0 Tobacco use; Z79.891 Long term (current) use of opiate analgesic; Z90.49 Acquired absence of other specified parts of digestive tract; Z95.5 Presence of coronary angioplasty implant and graft; Z79.899 Other long term (current) drug therapy; Z98.890 Other specified postprocedural states
CPT/HCPCS: 36415; 71010; 80048; 83735; 84443; 84484; 85027; 93005; 96365; 96366; 96375; J0153; J3475; J3490; 99285-25

== ENCOUNTER 2016-03-27 08:29 | Emergency (ER) | payer OTHER ==
[~2016-03-27] VITALS: Ht 190.5 cm; Wt 109.8 kg
[~2016-03-27 08:29] MED LIST changes: +DILT120C97 PO; +DILT300C23 PO; +DILT30TA26 PO; +FLEC50TA PO; -ISOS30TA4; -MONT10TA9; +MONT10TA9 PO; +OXYC1TAB9 PO
[2016-03-27] MEDS ORDERED: DILTIAZEM IV PUSH 25 MG/5 ML VIAL. IVP ONE ×2 (08:45→09:15)
[2016-03-27] MEDS ORDERED: IV NORMAL SALINE 1000ML BAG 1,000 ML IV SCH ×2 (08:47→10:01)
--- NOTE | 2016-03-27 09:13 | PHYS DOC ---
Past Medical History Past Medical History: Cancer, High Cholesterol, Hypertension, MT, Other Additional Past Medical Histor: SVT ,colon cancer, abd aneurysm Past Surgical History: Other Additional Past Surgical Histo: colon cancer resection, cardiac stents, aneurysm repair (10/21/13) Alcohol Use: None Drug Use: Marijuana Adult General Chief Complaint Chief Complaint: CHEST PAIN HPI HPI Patient is a 75 year old male who presents with complaint of racing heartbeat and chest discomfort. Patient states that the symptoms started less than an hour prior to arrival. Patient has history of PSVT and was recently admitted to the hospital on March 17, 2016 for treatment. The patient is currently on daily Cardizem and states that he has not missed any doses. Patient states he took his morning dose today prior to symptom onset. Patient rates his pain as 4 out of 10. Patient states he has associated shortness of breath. Patient denies any fevers, nausea, vomiting, or diaphoresis. Patient follows a Dr. Coronado for primary care and Dr. Ryder of cardiology. Review of Systems Review of Systems Constitutional: Denies fever or chills [] Eyes: Denies change in visual acuity, redness, or eye pain [] HENT: Denies nasal congestion or sore throat [] Respiratory: Shortness of breath [] Cardiovascular: Chest pain, denies edema [] GI: Denies abdominal pain, nausea, vomiting, bloody stools or diarrhea [] : Denies dysuria or hematuria [] Musculoskeletal: Denies back pain or joint pain [] Integument: Denies rash or skin lesions [] Neurologic: Denies headache, focal weakness or sensory changes [] Current Medications Current Medications Current Medications Medications (Trade) Dose Ordered Sig/Avery Start Time Stop Time Status Last Admin Dose Admin Acetaminophen (Tylenol) 650 mg PRN Q4HRS PRN 03/27/16 10:15 03/28/16 10:14 Digoxin (Lanoxin) 500 mcg 1X ONCE 03/27/16 09:45 03/27/16 09:46 DC 03/27/16 10:05 500 MCG Diltiazem HCl (Cardizem) 20 mg 1X ONCE 03/27/16 08:45 03/27/16 08:46 DC 03/27/16 08:52 20 MG Diltiazem HCl 25 mg 25 mg 1X ONCE 03/27/16 09:15 03/27/16 09:16 DC 03/27/16 09:11 25 MG Diltiazem HCl/ Dextrose (Cardizem) 125 ml @ 0 mls/hr CONT PRN 03/27/16 09:30 03/27/16 10:05 5 MLS/HR Ondansetron HCl 4 mg 4 mg PRN Q8HRS PRN 03/27/16 10:15 03/28/16 10:14 Sodium Chloride (Iv Sodium Chloride 0.9% 1000ml Bag) 1,000 ml @ 100 mls/hr Q10H 03/27/16 10:01 03/28/16 10:00 Allergies Allergies Allergies Coded Allergies Type Severity Reaction Last Updated Verified morphine Allergy Intermediate "Hives" 02/22/16 Yes pneumococcal vaccine Adverse Reaction Intermediate Swelling 02/22/16 Yes Physical Exam Physical Exam Constitutional: Alert, afebrile, appears in mild discomfort. [] HENT: Normocephalic, atraumatic, bilateral external ears normal, oropharynx moist, no oral exudates, nose normal. [] Eyes: PERRLA, EOMI, conjunctiva normal, no discharge. [] Neck: Normal range of motion, no tenderness, supple, no stridor. [] Cardiovascular: Tachycardia, regular rhythm, no murmur [] Lungs & Thorax: Bilateral breath sounds clear to auscultation [] Abdomen: Bowel sounds normal, soft, no tenderness, no masses, no pulsatile masses. [] Skin: Warm, dry, no erythema, no rash. [] Back: No tenderness, no CVA tenderness. [] Extremities: No tenderness, no cyanosis, no clubbing, ROM intact, no edema. [] Neurologic: Alert and oriented X 3, normal motor function, normal sensory function, no focal deficits noted. [] Current Patient Data Vital Signs Vital Signs Date Time Temp Pulse Resp B/P Pulse Ox O2 Delivery O2 Flow Rate FiO2 03/27/16 10:05 133 134/82 03/27/16 08:34 97.9 24 97 Room Air 97.9 Lab Values Laboratory Tests Test 03/27/16 09:30 White Blood Count 9.7x10^3/uL (4.0-11.0) Red Blood Count 4.69x10^6/uL (4.30-5.70) Hemoglobin 13.0g/dL (13.0-17.5) Hematocrit 39.8% (39.0-53.0) Mean Corpuscular Volume 85fL (79-100) Mean Corpuscular Hemoglobin 28pg (25-35) Mean Corpuscular Hemoglobin Concent 33g/dL (31-37) Red Cell Distribution Width 15.6% (11.5-14.5) H Platelet Count 170x10^3/uL (140-400) Neutrophils (%) (Auto) 76% (31-73) H Lymphocytes (%) (Auto) 15% (24-48) L Monocytes (%) (Auto) 7% (0-9) Eosinophils (%) (Auto) 1% (0-3) Basophils (%) (Auto) 1% (0-3) Neutrophils # (Auto) 7.4x10^3uL (1.8-7.7) Lymphocytes # (Auto) 1.5x10^3/uL (1.0-4.8) Monocytes # (Auto) 0.7x10^3/uL (0.0-1.1) Eosinophils # (Auto) 0.1x10^3/uL (0.0-0.7) Basophils # (Auto) 0.1x10^3/uL (0.0-0.2) Sodium Level 138mmol/L (136-145) Potassium Level 3.7mmol/L (3.5-5.1) Chloride Level 104mmol/L (98-107) Carbon Dioxide Level 22mmol/L (21-32) Anion Gap 12 (6-14) Blood Urea Nitrogen 22mg/dL (8-26) Creatinine 2.2mg/dL (0.7-1.3) H Estimated GFR (Cockcroft-Gault) 35.6 Glucose Level 171mg/dL (70-99) H Calcium Level 9.0mg/dL (8.5-10.1) Magnesium Level 1.8mg/dL (1.8-2.4) Total Bilirubin 0.4mg/dL (0.2-1.0) Direct Bilirubin 0.1mg/dL (0.0-0.2) Aspartate Amino Transferase (AST) 23U/L (15-37) Alanine Aminotransferase (ALT) 28U/L (16-63) Alkaline Phosphatase 94U/L (46-116) Creatine Kinase 317U/L (39-308) H Creatine Kinase MB (Mass) 1.3ng/mL (0.0-3.6) Creatine Kinase MB Relative Index 0.4% (0-4) Troponin I Quantitative < 0.017ng/mL (0.000-0.055) LQ-[id number]-Type Natriuretic Peptide 122pg/mL (0-124) Total Protein 7.3g/dL (6.4-8.2) Albumin 3.2g/dL (3.4-5.0) L Laboratory Tests 03/27/16 09:30 Laboratory Tests 03/27/16 09:30 EKG EKG Interpreted by me: Heart rate 140 bpm, supraventricular tachycardia, normal axis , ST depressions in V4 through V6, no acute ST elevations [] Radiology/Procedures Radiology/Procedures [facility] [address] [place] [address] IMAGING REPORT Signed PATIENT: LIAM MOSELEY ACCOUNT: [id number] : 1940 LOCATION: ER AGE: 75 SEX: M EXAM STATUS: PRE ER ORD. PHYSICIAN: DUNCAN MARQUEZ MD REASON: chest pain PROCEDURE: PORTABLE CHEST 1V Single view chest History:Chest pain starting one day ago An AP view of the chest is submitted. Comparison: 02/29/2016 and 05/07/2014. Findings: There is no new significant infiltrate, pleural effusion, or pneumothorax. The pericardial cardiac silhouette is stable. The trachea is in the midline. There is mild atherosclerotic calcification near the aortic arch. Impression: No acute abnormality is identified by radiograph. DICTATED and SIGNED BY: SABA CHEATHAM MD DATE: 03/27/16921 CC: DUNCAN MARQUEZ MD; JESSENIA CORONADO MD ~ [] Course & Med Decision Making Course & Med Decision Making Pertinent Labs and Imaging studies reviewed. (See chart for details) The patient was given an initial 20 mg bolus of IV Cardizem which did not reduce heart rate. Patient was given an additional 25 mg of IV Cardizem followed with a continuous infusion. Despite treatment, the patient continues to sustain a heart rate of [address] Riley who recommended initiation of digoxin therapy. Due to sustained tachycardia, the patient will need to be admitted the hospital for further evaluation and treatment. I spoke with Dr. Coronado who accepted care patient in hospital. Critical care time excluding procedures: 45 minutes Dragon Disclaimer Dragon Disclaimer This electronic medical record was generated, in whole or in part, using a voice recognition dictation system. Departure Departure Impression: Primary Impression: SVT (supraventricular tachycardia) Additional Impression: Chest pain Disposition: 09 ADMITTED INPATIENT Admitting Physician: Jessenia Coronado Condition: GUARDED Referrals: JESSENIA CORONADO MD (PCP) Problem Qualifiers Additional Impression: Chest pain Chest pain type: other chest pain Qualified Code: R07.89 - Other chest pain DUNCAN MARQUEZ MD Mar 27, 2016 09:13
--- NOTE | 2016-03-27 09:25 | RAD ---
Single view chest History:Chest pain starting one day ago An AP view of the chest is submitted. Comparison: 02/29/2016 and 05/07/2014. Findings: There is no new significant infiltrate, pleural effusion, or pneumothorax. The pericardial cardiac silhouette is stable. The trachea is in the midline. There is mild atherosclerotic calcification near the aortic arch. Impression: No acute abnormality is identified by radiograph.
[2016-03-27] MEDS ORDERED: DILTIAZEM 125 MG in IV DEXTROSE 5% 100 ML IV PRN (09:30)
[2016-03-27] MEDS ORDERED: DIGOXIN 500 MCG/2 ML AMPUL. IV ONE (09:45)
[2016-03-27 09:46] LABS: BASO # 0.1 x10^3/uL (0.0-0.2); BASO % 1 % (0-3); EOS % 1 % (0-3); HEMATOCRIT 39.8 % (39.0-53.0); LYMPH # 1.5 x10^3/uL (1.0-4.8); LYMPH % 15 % (24-48); MEAN CORPUSCULAR HEMOGLOBIN 28 pg (25-35); MEAN CORPUSCULAR HGB CONC 33 g/dL (31-37); MEAN CORPUSCULAR VOLUME 85 fL (79-100); MONO % 7 % (0-9); NEUT % 76 % (31-73); PLATELET COUNT 170 x10^3/uL (140-400); RED BLOOD COUNT 4.69 x10^6/uL (4.30-5.70); RED CELL DISTRIBUTION WIDTH 15.6 % (11.5-14.5); WHITE BLOOD COUNT 9.7 x10^3/uL (4.0-11.0)
[2016-03-27 09:50] LABS: CREATININE 2.2 mg/dL (0.7-1.3); GFR 35.6; POTASSIUM 3.7 mmol/L (3.5-5.1)
[2016-03-27 09:55] LABS: ALBUMIN 3.2 g/dL (3.4-5.0); DIRECT BILIRUBIN 0.1 mg/dL (0.0-0.2); MAGNESIUM 1.8 mg/dL (1.8-2.4); TOTAL BILIRUBIN 0.4 mg/dL (0.2-1.0); TOTAL PROTEIN 7.3 g/dL (6.4-8.2)
[2016-03-27 10:03] LABS: CKMB INDEX 0.4 % (0-4); CKMB MASS 1.3 ng/mL (0.0-3.6)
[2016-03-27] MEDS ORDERED: ACETAMINOPHEN 325 MG TABLET. PO PRN (10:15)
[2016-03-27] MEDS ORDERED: ONDANSETRON PF 4 MG/2 ML VIAL. IV PRN (10:15)
[2016-03-27 11:33] LABS: BILIRUBIN,URINE NEGATIVE (NEG); GLUCOSE,URINE NEGATIVE (NEG); NITRITE,URINE NEGATIVE (NEG); PH,URINE 5.5; PROTEIN,URINE NEGATIVE (NEG-TRACE); UROBILINOGEN,URINE 0.2 mg/dL (0.2 mg/dL)
[2016-03-27 11:37] LABS: BARBITURATES NEG (NEG); BENZODIAZEPINES NEG (NEG); CANNABINOIDS POS (NEG); COCAINE NEG (NEG); METHADONE NEG (NEG); OPIATES NEG (NEG); PHENCYCLIDINE NEG (NEG)
[2016-03-27 11:39] LABS: ETHANOL, URINE NEG (NEG)
[2016-03-27 12:04] LABS: BACTERIA,URINE 0 /HPF (0-FEW); RBC,URINE 0 /HPF (0-2); SQUAMOUS EPITHELIAL CELL,UR FEW /LPF; WBC,URINE 0 /HPF (0-4)
--- NOTE | 2016-03-27 12:22 | EKG ---
[facility] [address] [place] [address] Test Date: 2016-03-27 Test Time: 08:38:26 Pat Name: LIAM MOSELEY Department: Room: ED HOLD 21 Gender: M Mother Helper: : 1940 Requested By: DUNCAN MARQUEZ Order Number: [id number] Reading MD: Demetria Black Measurements Intervals [place] Rate: 140 P: DE: QRS: 2 QRSD: 88 T: 51 QT: 310 QTc: 477 Interpretive Statements SUPRAVENTRICULAR TACHYCARDIA NON SPECIFIC ST T WAVE CHANGES Electronically Signed On 03-27-2016 19:19:46 SPECIALTY DEPARTMENT SUPERVISOR by Demetria Black
[2016-03-27 14:00] VITALS: BP 140/65
--- NOTE | 2016-03-27 14:11 | PDOC ---
Provider Note Provider Note Patient seen. Combined History and Physical and discharge summary dictated. See dictation# [id number]. VIKY MOTT MD Mar 27, 2016 14:11
--- NOTE | 2016-03-27 14:13 | DISCH ---
DISCHARGE INSTRUCTIONS Condition on Discharge Condition on Discharge: Stable Activity After Discharge Activity Instructions for Disc: Resume previous activity Diet after Discharge Diet after Discharge: Cardiac Contacting the DR. after DC Call your doctor for: Concerns you may have Follow-Up Follow up with: Ally Mott in 4 days. VIKY MOTT MD Mar 27, 2016 14:13
--- NOTE | 2016-03-27 15:39 | ACF ---
Admission Forms Criteria SUPRAVENTRICULAR ARRHYTHMIAS Clinical Indications for Admission to Inpatient Care (Place 'X' for any and all applicable criteria): Admission is indicated by ANY ONE of the following (1)(2): [X]I. Arrhythmia causing significant symptoms or findings as indicated by ANY ONE of the following: [ ]a) Chest pain [ ]b) Myocardial ischemia [ ]c) Altered mental status [ ]d) Dizziness, weakness, or light-headedness [X]e) Dyspnea or hypoxemia [ ]f) Heart failure (eg, pulmonary edema)(11) [ ]II. Initiation of antiarrhythmic drug therapy is needed in patient at high risk of adverse events as indicated by ANY ONE of the following: [ ]a) Significant structural heart disease (eg, aortic stenosis, reduced ejection fraction, cardiomyopathy, congenital heart disease) [ ]b) Underlying sinus node or atrioventricular conduction disturbances [ ]c) Prolonged QT interval [ ]d) Need for treatment with antiarrhythmic that have significant proarrhythmic potential ( procainamide) [ ]e) Patient whose sinus rhythm has not been observed on ECG [X]III. Inpatient admission required rather than observation care because of ANY ONE of the following: [ ]a) Syncope [ ]b) Patient has automatic implanted cardioverter-defibrillator that is repeatedly firing, malfunctioning, or in need of immediate adjustment of settings beyond scope of ambulatory or observation care. [ ]c) Hemodynamic instability that is severe or persistent [ ]d) Unstable cardiac conduction defects indicated by ANY ONE of the following(19)(20)(21): [ ]a) Type II second-degree atrioventricular block [ ]b) Third-degree atrioventricular block [ ]C) New-onset left bundle branch block with suspected myocardial ischemia [ ]e) Severe electrolyte abnormalities requiring inpatient care [X]f) Continuous intravenous infusion of anticoagulation, platelet inhibitor, vasoactive, or antiarrhythmic medication(14) [ ]g) Pulmonary artery catheter monitoring [ ]h) Repeat cardioversion necessary [ ]i) Other condition, treatment or monitoring requiring inpatient admission [ ]IV. Underlying medical condition that necessitates inpatient care (eg, thyrotoxicosis, severe acidosis) Extended stay beyond goal length of stay may be needed for(1)(17)(18): [ ]a) Persistent hemodynamic instability or continued severe arrhythmia [ ]b) Continued monitoring during initiation of certain medications (eg, some antiarrhythmics)(17)(19) [ ]c) Precipitating cause requires ongoing inpatient care (eg, severe electrolyte abnormality, systemic infection, acidosis) [ ]d) Unstable comorbidities The original [facility] content created by [facility] has been revised. The portions of the content which have been revised are identified through the use of italic text or in bold, and [facility] has neither reviewed nor approved the modified material. All other unmodified content is copyright [facility]. Please see references footnoted in the original [facility] edition 2016 Admission Criteria Met?: Yes JORDON LANG Mar 27, 2016 15:39
--- NOTE | 2016-03-28 08:29 | HP ---
ADMIT DATE: 03/27/2016 This is a combined history and physical and discharge summary: DATE OF ADMISSION: 03/27/2016 DATE OF DISCHARGE: 03/27/2016 HISTORY OF PRESENT ILLNESS: This 75-year-old -[place] male who has been admitted to this institution several times in the past who was just discharged from this institution on 02/29/2016 after being treated for paroxysmal supraventricular tachycardia started having dyspnea, tightness of chest and palpitations an hour before coming to the Emergency Room. In the Emergency Room, the patient was started on IV Cardizem drip, but he did not respond, so IV digoxin was given. The patient was then admitted to the hospital and while he was waiting in the Emergency Room, he converted to sinus rhythm and now, the patient does not want to be admitted as he is feeling fine. The patient was seen by Dr. Riley who felt the patient could go home. I had seen the patient in the office just recently and 2 days later, possibly on 03/23, the patient was supposed to go and see the arborist, there is an strategic sourcing specialist at [facility]. The patient was telling me that he is supposed to see him in April and when I confronted him that he was supposed to see him 2 days after he saw me, he changes his story and states that he saw him and he is supposed to go back again in one month. He has been giving different dates, so I am not sure if he has really seen the arborist or not. REVIEW OF SYSTEMS: At present time, when I saw him earlier in the ER, he still was tachycardic and had some tightness of the chest. Other systems reviewed and are negative. PAST MEDICAL HISTORY: The patient has a history of paroxysmal supraventricular tachycardia, coronary artery disease, hypertension, myocardial infarction, hyperlipidemia, AAA 5.8 cm endograft plus, history of colon cancer with history of resection and chemoradiation in the past, osteoarthritis, bilateral knees severe, chronic kidney disease stage III, baseline creatinine is 2.1-2.2, benign prostatic enlargement, atrophic right kidney, hyperparathyroidism secondary to chronic kidney disease III. PAST SURGICAL HISTORY: The patient had endograft for AAA aneurysm in 10/2013. FAMILY HISTORY: Positive for coronary artery disease. SOCIAL HISTORY: Past history of smoking. No history of alcoholism. The patient has been using marijuana. ALLERGIES: THE PATIENT IS ALLERGIC TO MORPHINE AND PNEUMONIA VACCINE. PHYSICAL EXAMINATION: VITAL SIGNS: Temperature 97.9, pulse was initially 140 per minute, blood pressure 136/94 mmHg, O2 sats 97%, respirations 24 per minute. Currently, the pulse is 74 per minute, respirations 18 per minute. Subsequently, he was 94 per minute pulse. HEENT: The patient is alert, oriented x3, not in any acute distress. LUNGS: Clear. CARDIOVASCULAR: S1, S2 regular. NECK: Supple. JVP normal. No thyromegaly. Trachea midline. ABDOMEN: Soft, nontender, no guarding, no rigidity. Bowel sounds present. EXTREMITIES: No edema. CENTRAL NERVOUS SYSTEM: Alert, oriented, no acute changes noted. LABORATORY FINDINGS: WBC count 9.7, hemoglobin 13. Sodium 138, potassium 3.7, BUN 22, creatinine 2.2, glucose 171. CK is 317, CK-MB 1.3, troponin less than 0.017. ProBNP 122, albumin 3.2. Urine drug screen is positive for marijuana. FINAL DIAGNOSES: 1. Paroxysmal supraventricular tachycardia, resolved. 2. Coronary artery disease. 3. Hypertension. 4. Hyperlipidemia. 5. History of myocardial infarction. 6. Marijuana abuse. 7. History of abdominal aortic aneurysm 5.8 cm repair with endograft. 8. Osteoarthritis, severe bilateral knees. 9. History of colon cancer with history of resection and chemoradiation. 10. Chronic kidney disease stage III. COURSE IN THE HOSPITAL: The patient responded well to IV Cardizem and IV digoxin and he is now converted back to normal sinus rhythm. The patient will be discharged home. DISPOSITION: Home. ACTIVITY: As tolerated. FOLLOWUP: To be followed by MD in 5 days. The patient was again also strongly advised to follow up with the arborist who is an strategic sourcing specialist soon. MEDICATIONS: Continue home medications, please review the orders and discharge instructions. DIET: Cardiac diet. Monitor blood sugar in the office. VIKY MOTT MD DR: LETY/merlene JOB#: [id number] / [id number]
--- NOTE | 2016-03-29 14:11 | PDOC3 ---
[facility] [address] [place] [address] HISTORY AND PHYSICAL PATIENT: LIAM MOSELEY ACCOUNT: [id number] : 1940 LOC: ED HOLD AGE: 75 SEX: M STATUS: ADM IN LOCATION: ED HOLD ADMIT DATE: 03/27/2016 This is a combined history and physical and discharge summary: DATE OF ADMISSION: 03/27/2016 DATE OF DISCHARGE: 03/27/2016 HISTORY OF PRESENT ILLNESS: This 75-year-old -[place] Citizen male who has been admitted to this institution several times in the past who was just discharged from this institution on 02/29/2016 after being treated for paroxysmal supraventricular tachycardia started having dyspnea, tightness of chest and palpitations an hour before coming to the Emergency Room. In the Emergency Room, the patient was started on IV Cardizem drip, but he did not respond, so IV digoxin was given. The patient was then admitted to the hospital and while he was waiting in the Emergency Room, he converted to sinus rhythm and now, the patient does not want to be admitted as he is feeling fine. The patient was seen by Dr. Riley who felt the patient could go home. I had seen the patient in the office just recently and 2 days later, possibly on 03/23, the patient was supposed to go and see the store associate, there is an electric needle specialist at [facility]. The patient was telling me that he is supposed to see him in April and when I confronted him that he was supposed to see him 2 days after he saw me, he changes his story and states that he saw him and he is supposed to go back again in one month. He has been giving different dates, so I am not sure if he has really seen the store associate or not. REVIEW OF SYSTEMS: At present time, when I saw him earlier in the ER, he still was tachycardic and had some tightness of the chest. Other systems reviewed and are negative. PAST MEDICAL HISTORY: The patient has a history of paroxysmal supraventricular tachycardia, coronary artery disease, hypertension, myocardial infarction, hyperlipidemia, AAA 5.8 cm endograft plus, history of colon cancer with history of resection and chemoradiation in the past, osteoarthritis, bilateral knees severe, chronic kidney disease stage III, baseline creatinine is 2.1-2.2, benign prostatic enlargement, atrophic right kidney, hyperparathyroidism secondary to chronic kidney disease III. PAST SURGICAL HISTORY: The patient had endograft for AAA aneurysm in 10/2013. FAMILY HISTORY: Positive for coronary artery disease. SOCIAL HISTORY: Past history of smoking. No history of alcoholism. The patient has been using marijuana. ALLERGIES: THE PATIENT IS ALLERGIC TO MORPHINE AND PNEUMONIA VACCINE. PHYSICAL EXAMINATION: VITAL SIGNS: Temperature 97.9, pulse was initially 140 per minute, blood pressure 136/94 mmHg, O2 sats 97%, respirations 24 per minute. Currently, the pulse is 74 per minute, respirations 18 per minute. Subsequently, he was 94 per minute pulse. HEENT: The patient is alert, oriented x3, not in any acute distress. LUNGS: Clear. CARDIOVASCULAR: S1, S2 regular. NECK: Supple. JVP normal. No thyromegaly. Trachea midline. ABDOMEN: Soft, nontender, no guarding, no rigidity. Bowel sounds present. EXTREMITIES: No edema. CENTRAL NERVOUS SYSTEM: Alert, oriented, no acute changes noted. LABORATORY FINDINGS: WBC count 9.7, hemoglobin 13. Sodium 138, potassium 3.7, BUN 22, creatinine 2.2, glucose 171. CK is 317, CK-MB 1.3, troponin less than 0.017. ProBNP 122, albumin 3.2. Urine drug screen is positive for marijuana. FINAL DIAGNOSES: 1. Paroxysmal supraventricular tachycardia, resolved. 2. Coronary artery disease. 3. Hypertension. 4. Hyperlipidemia. 5. History of myocardial infarction. 6. Marijuana abuse. 7. History of abdominal aortic aneurysm 5.8 cm repair with endograft. 8. Osteoarthritis, severe bilateral knees. 9. History of colon cancer with history of resection and chemoradiation. 10. Chronic kidney disease stage III. COURSE IN THE HOSPITAL: The patient responded well to IV Cardizem and IV digoxin and he is now converted back to normal sinus rhythm. The patient will be discharged home. DISPOSITION: Home. ACTIVITY: As tolerated. FOLLOWUP: To be followed by MD in 5 days. The patient was again also strongly advised to follow up with the store associate who is an electric needle specialist soon. MEDICATIONS: Continue home medications, please review the orders and discharge instructions. DIET: Cardiac diet. Monitor blood sugar in the office. VIKY Cardenas. MD PANTERA DR: LETY/merlene JOB#: [id number] / [id number] DICTATED BY: VIKY MOTT MD 03/27/16 1410 SIGNED BY: VIKY MOTT MD 03/28/16 0951 JOSE ROBERTO ROSE APRN Mar 29, 2016 14:11
== END 2016-03-27 14:29 | disposition other institution (70) ==
LOC: ER 08:29 → ED HOLD 09:41 → UNDOADMIN 09:41 → ED HOLD 14:29
DX: I47.1 Supraventricular tachycardia (principal); R07.9 Chest pain, unspecified; E78.5 Hyperlipidemia, unspecified; F12.10 Cannabis abuse, uncomplicated; I12.9 Hypertensive chronic kidney disease with stage 1 through stage 4 chronic kidney disease, or unspecified chronic kidney disease; N18.3 Chronic kidney disease, stage 3 (moderate); I25.10 Atherosclerotic heart disease of native coronary artery without angina pectoris; I25.2 Old myocardial infarction; Z87.891 Personal history of nicotine dependence; M17.0 Bilateral primary osteoarthritis of knee; Z88.5 Allergy status to narcotic agent; Z88.7 Allergy status to serum and vaccine
CPT/HCPCS: 36415; 71010; 80048; 80076; 81001; 82553; 83735; 83880; 84484; 85027; 93005; 96361; 96365; 96375; 96376; 99291; G0481; J1160; J3490; J7030

== ENCOUNTER → 2016-09-15 | Outpatient (CLI) | payer OTHER ==
[2016-04-11 17:00] VITALS: BP 149/82
[~2016-09-15] MED LIST changes: +DILT120C80 PO; -DILT120C97 PO; +FLUN8.9H IH; -HYDR-2666; +HYDR-2758; +HYDR-2762 PO
--- NOTE | 2016-09-15 11:14 | PAIN ---
DATE OF SERVICE: 09/15/2016 PROGRESS NOTE FOR PAIN CLINIC DIAGNOSES: Lumbar radiculopathy with lumbar degenerative disk disease, spinal stenosis, and post-lumbar laminectomy syndrome. HISTORY OF PRESENT ILLNESS: The patient is a 76-year-old male who returns for followup, last seen 01/2016. The patient had some cardiac issues with some arrhythmias and has some atrial fibrillation since undergone cardioversion, was unable to follow up after we had seen him first time, but complains of significant pain still in the low back, bilateral lower extremities, worse on the left than the right without significant improvement. The patient reports it is increasing with activity, standing, walking, better with sitting or lying down. It does awaken him from sleep about every 4 hours. He has to re-position, get out of bed, change positions or take pain medication to decrease the pain. The patient reports it is across the low back radiating to bilateral posterior gluteus, posterior lateral thigh, lateral and posterior calves and into the feet bilaterally in a L5-S1 dermatomal distribution. The patient has had lumbar surgery before and had an MRI scan showing laminectomy defects at L4 and L5 with shallow bulge protrusion at L5-S1 greater in the right lateral recess with moderate right and mild left lateral recess stenosis contacting descending right S1 nerve root with mild neural foraminal compromise bilaterally, greater on the right side as well. The patient reports again worse with walking, standing with significant fatigability in the lower extremities in the right and left leg. The patient reports there is tingling, burning, cramping, tight, sharp and aching and constant, rates it an 8 on a scale of 10 at its worst and currently is a 5 on a scale of 10 today. MEDICATIONS: Include diltiazem, diclofenac, bupropion, clopidogrel, finasteride, atorvastatin, lisinopril, omeprazole, daily baby aspirin, hydrocodone, Aerospan, fluticasone, Montelukast, and amlodipine. ALLERGIES: THE PATIENT REPORTS HE IS ACTUALLY ALLERGIC TO MORPHINE. PAST MEDICAL HISTORY: Significant for colon cancer in the , hearing loss, shortness of breath and quit smoking about 8 months ago, hypertension, coronary artery disease with stents placed, gastroesophageal reflux, arthritis. PREVIOUS SURGERY: Include lumbar laminectomy, cholecystectomy, knee scope on the right, shoulder arthroscopy on the right, thyroidectomy and cataract extractions. FAMILY HISTORY: Significant for cancer, heart disease, and hypertension. SOCIAL HISTORY: The patient does not drink alcohol, stopped smoking, is , retired and lives locally. PHYSICAL EXAMINATION: VITAL SIGNS: Today his blood pressure is 145/82, pulse 67, respirations are 16, temperature 98.2 degrees Fahrenheit, height is 6 feet 3 inches, weighs 241 pounds. GENERAL: The patient is awake, alert, oriented, appropriate, very pleasant demeanor. HEENT: Head is normocephalic, atraumatic. Extraocular movements are intact and symmetrical. Oral cavity shows mucous membranes moist and pink. Dentition is intact. NECK: Shows anterior throat supple without palpable lymphadenopathy noted. Swallow reflex is symmetrical. Neck shows full rotational motion of cervical spine, both laterally as well as extension and flexion without difficulty. CHEST: Shows normal on inspection. Breath sounds are clear to auscultation bilaterally. HEART: Shows S1 and S2 clear. No murmurs are auscultated. ABDOMEN: Soft, nontender, nondistended. No palpable organomegaly is noted. No rebound or guarding demonstrated. BACK: The patient's back shows grossly midline spine. Normal thoracic kyphosis and lumbar lordotic curvature, slightly flattened with some previous surgical scarring noted. The patient's musculature in the lumbar distribution shows symmetrical on inspection with palpation shows some moderate tenderness with palpation in the middle and lower distribution, it is symmetrical without radiation, without trigger points. No tenderness over the sacrum or sacroiliac regions or the spinous processes. The patient shows good rotation and motion of the lumbar spine, both laterally greater than 10 degrees right and left as well as extension greater than 10 degrees, forward flexion at 45 degrees without significant pain reported. EXTREMITIES: The patient's lower extremities showed deep tendon reflexes 1+ in the patellar and tendo calcaneus tendons. Motor exam is 4 on a scale of 5 on the right and left, but is symmetrical and equal. Peripheral pulses are 1+ posterior tibial and dorsalis pedis pulses. No peripheral edema is noted. No clubbing or cyanosis. Straight leg raise noted to be positive at about 45 degrees on the right and about 40 degrees on the left, decreased with knee flexion, but not completely relieved. Gaenslen's and Wisam's maneuvers are negative bilaterally. The patient is able to stand, has difficulty walking using a cane in his right hand and appears to favor his left lower extremity with a significant limp when he is ambulating. Options were discussed with the patient and the patient's old chart was reviewed as his current medication regimen updated and review of systems updated as noted. We will preauthorize the patient for a caudal approach epidural steroid injection once it has been cleared to have him off of his Plavix from his cheese packer. We will check with him first. If this is deemed appropriate and safe, we will have the patient return once preauthorized for a caudal approach epidural steroid injection for his significant radicular pain in quality in the L5-S1 distribution with MRI scan results as noted. The patient was encouraged to increase his activity as tolerated and to maintain activity and strengthening and stretching exercises with his back and legs as well. The patient also was given Medrol Dosepak with instructions and side effects to be aware of with the medication to take with food and we will have him return once he is preauthorized. ARI BELLO MD DR: BRITTNEY/merlene JOB#: [id number] / [id number]
== END | disposition home or self-care (01) ==
LOC: PNCL 08:27
PROVIDERS: ATTEND Anesthesiology
DX: M54.16 Radiculopathy, lumbar region (principal); M51.36 Other intervertebral disc degeneration, lumbar region; M47.896 Other spondylosis, lumbar region
CPT/HCPCS: G0463

== ENCOUNTER → 2016-10-27 | Outpatient (CLI) | payer OTHER ==
[2016-04-11 17:00] VITALS: BP 149/82
[~2016-10-27] MED LIST changes: +IOHEXOL 180 MG/ML 10 ML VIAL. ONE; +methylPREDNISolone ACETATE 40 MG/ML VIAL. ONE; +methylPREDNISolone ACETATE 80 MG/ML VIAL. ONE
--- NOTE | 2016-10-27 14:17 | PAIN ---
DATE OF SERVICE: 10/27/2016 DIAGNOSES: Lumbar radiculopathy with lumbar degenerative disk disease, spinal stenosis and post-lumbar laminectomy syndrome. HISTORY OF PRESENT ILLNESS: The patient is a 76-year-old male who returns for followup status post evaluation and holding his Plavix, which was cleared by his fire observer. He had been off of this now for about 10 days. The patient reports still significant pain in the low back and bilateral lower extremities. No new motor or sensory changes or deficits, still significant pain radiating to the bilateral legs across the low back, mostly in the posterolateral aspect of the thighs and calves, right and left essentially equal. The patient reports it is constant, becoming unbearable, tingling, cramping, stabbing, aching and tight, rates it 10 on scale of 10 in all measures. The patient reports it wakes him from sleep constantly. He has to reposition or take pain medication to get out of bed and change positions. The patient reports no new motor or sensory deficits; however, no new bowel or bladder incontinence or other complaints. PHYSICAL EXAMINATION: VITAL SIGNS: The patient's blood pressure 174/96, pulse 63, respirations are 18, temperature is 98.2 degrees Fahrenheit, height is 6 feet 4 inches, weighs 235 pounds. GENERAL: The patient is awake, alert, oriented, appropriate, very pleasant demeanor. HEENT: Head shows normocephalic, atraumatic. Extraocular movements are intact and symmetrical. Oral cavity, mucous membranes are moist and pink. Dentition is intact. NECK: Shows anterior throat supple without palpable lymphadenopathy noted. Swallow reflex is symmetrical. CHEST: Shows normal on inspection. Breath sounds are clear to auscultation bilaterally. HEART: Shows S1 and S2 clear. ABDOMEN: Soft, nontender, nondistended. No palpable organomegaly is noted. No rebound or guarding demonstrated. BACK: Shows spine grossly midline. Lumbar paraspinous musculature shows some moderate tenderness to palpation throughout the upper, middle and lower distribution. Well-healed surgical scar is again noted. No tenderness over the sacrum or sacroiliac regions. EXTREMITIES: Lower extremities showed deep tendon reflexes 1+/4 in the patellar and tendo calcaneus tendons. Motor exam is approximately 4 on a scale of 5, but equal and symmetrical with dorsiflexion, extension bilaterally. No peripheral edema is noted. Peripheral pulses are 1+. Options were discussed with the patient and the patient's old chart was reviewed as his current medication regimen updated. Current review of systems is updated today as well. We will proceed with a caudal approach epidural steroid injection today with fluoroscopic guidance. Risks were again discussed including, but not limited to bleeding, infection, possibility of epidural hematoma, subsequent neurologic compromise, dural punctures, headaches, spinal cord and/or nerve damage, side effects of steroid medication and poor results regarding pain control. The patient understands and wishes to proceed. The patient will return to clinic in approximately 2 weeks for followup, was counseled on return appointment, activity level and side effects to be aware of. DIAGNOSIS: Lumbar radiculopathy with lumbar degenerative disk disease, spinal stenosis and post-lumbar laminectomy syndrome. PROCEDURE: Caudal approach epidural steroid injection using C-arm fluoroscopic guidance under sterile prep and drape using local anesthetic. MEDICATION INJECTED: A total of 120 mg Depo-Medrol plus 10 mL preservative-free normal saline, 2 mL Isovue for contrast. CONDITION AT DISCHARGE: Stable. The patient tolerated procedure well, had no complications. ARI BELLO MD DR: BRITTNEY/merlene JOB#: [id number] / [id number]
== END | disposition home or self-care (01) ==
LOC: PNCL 10:14
PROVIDERS: ATTEND Anesthesiology
DX: M51.16 Intervertebral disc disorders with radiculopathy, lumbar region (principal); M48.06 Spinal stenosis, lumbar region; M96.1 Postlaminectomy syndrome, not elsewhere classified; E78.00 Pure hypercholesterolemia, unspecified; F17.200 Nicotine dependence, unspecified, uncomplicated; K21.9 Gastro-esophageal reflux disease without esophagitis; I48.91 Unspecified atrial fibrillation; Z72.0 Tobacco use; Z98.41 Cataract extraction status, right eye; Z86.69 Personal history of other diseases of the nervous system and sense organs; Z85.038 Personal history of other malignant neoplasm of large intestine; Z87.39 Personal history of other diseases of the musculoskeletal system and connective tissue
CPT/HCPCS: 62323; J1030; J1040

== ENCOUNTER → 2016-11-10 | Outpatient (CLI) | payer OTHER ==
[2016-04-11 17:00] VITALS: BP 149/82
[~2016-11-10] MED LIST changes: -IOHEXOL 180 MG/ML 10 ML VIAL. ONE; -methylPREDNISolone ACETATE 40 MG/ML VIAL. ONE; -methylPREDNISolone ACETATE 80 MG/ML VIAL. ONE
--- NOTE | 2016-11-11 03:20 | PAIN ---
DATE OF SERVICE: 11/10/2016 PROGRESS NOTE FOR PAIN CLINIC DIAGNOSES: Lumbar radiculopathy with lumbar spinal stenosis, degenerative disk disease and post-lumbar laminectomy syndrome. HISTORY OF PRESENT ILLNESS: The patient is a 76-year male who returns for followup, status post caudal approach epidural steroid injection x 1. The patient reports about 75% improvement initially, which is about 3 weeks ago, now the pain is returning over the past day or 2 in the low back, bilateral lower extremities with some increased pain as it goes along. The patient reports the pain gradually returning, was not significant abrupt returned, but the pain is becoming more noticeable with walking and standing. After the injection, he was walking much more comfortably. He was able to ambulate with much more easy and comfort, especially walking up hills as this has been a problem for him, but now the pain is returning where he is having difficulty with the hills again over the past 2-3 days. The patient reports the pain is across the low back in the bilateral lower extremities, posterior gluteus, posterior thighs, lateral thighs, medial foot, and ankle bilaterally, it is aching, sharp type shooting pain, it is cramping and burning and becoming more constant with time. The patient reports a 9 on the scale of 10 at its worse and is about a 4 on the scale of 10 at least, is 8 on average. The patient reports no new or sensory deficits. No new bowel, bladder incontinence or other complaints. Significant pain again in the L5 and S1 dermatome bilaterally. The lower extremities, patient reports left just as equal to the right with pain. The patient reports it awakens him from sleep occasionally, but he sleeps only about 4 hours at a time, he can easily reposition, get out of bed or take a pain medication and he is able to get back to sleep. PHYSICAL EXAMINATION: VITAL SIGNS: Today, the patient's blood pressure is 165/85, pulse 64, respirations 18, temperature 98.2 degrees Fahrenheit, height is 6 feet and 3 inches, weight is 226 pounds. GENERAL: The patient is awake, alert, oriented, appropriate, very pleasant demeanor. HEENT: Head shows normocephalic and atraumatic. Extraocular movements are intact and symmetrical. Oral cavity: Mucous membranes are moist and pink. Dentition is intact. NECK: Shows anterior throat is supple without palpable lymphadenopathy noted. Swallow reflex is symmetrical. CHEST: Shows normal on inspection. Breath sounds are clear to auscultation bilaterally. HEART: Shows S1 and S2 clear. No murmurs auscultated. ABDOMEN: Soft, nontender, nondistended, no palpable organomegaly. No rebound or guarding demonstrated. BACK: Shows spine grossly in the midline. Well healed surgical scars noted with some flattening of lumbar lordotic curvature. Lumbar paraspinous muscle shows some moderate tenderness with palpation bilaterally, but only diffusely in the middle and lower distribution. The patient shows nontender over the sacrum, or sacroiliac regions. LOWER EXTREMITIES: Show deep tendon reflexes 1+ in the patellar and tendo calcaneus tendons. Motor exam is strong with approximately 4 on a scale of 5 but equal dorsiflexion, extension, quadriceps, and hamstring flexion. Straight leg raise is again positive, but not to about 45 degrees with each lower extremity and is decreased with knee flexion that is present bilaterally. The patient is able to stand. He is walking with a shuffling gait, has a cane he is walking with it in his right hand. Options were discussed with the patient. The patient's old chart was reviewed and his current medications regimen updated. Current review of systems updated today as well and we will preauthorize the patient for a second caudal approach epidural steroid injection as he did very well for the first one again with radicular pain returning in the L5-S1 dermatome, bilateral lower extremities. We will plan on caudal approach for the injection. The patient will be given Medrol Dosepak as well as hydrocodone 7.5 mg. The patient was given instructions as well as side effects to be aware of each of the medications and will follow up approximately 1 week with preauthorization pending. ARI BELLO MD DR: BRITTNEY/merlene JOB#: [id number] / [id number]
== END | disposition home or self-care (01) ==
LOC: PNCL 09:28
PROVIDERS: ATTEND Anesthesiology
DX: M51.16 Intervertebral disc disorders with radiculopathy, lumbar region (principal); M48.06 Spinal stenosis, lumbar region; M25.572 Pain in left ankle and joints of left foot
CPT/HCPCS: G0463

== ENCOUNTER → 2017-03-06 | Outpatient (CLI) | payer OTHER | END | disposition home or self-care (01) | LOC: PNCL 10:07 | DX: M51.16 Intervertebral disc disorders with radiculopathy, lumbar region (principal); M48.061 Spinal stenosis, lumbar region without neurogenic claudication; M25.512 Pain in left shoulder | CPT/HCPCS: G0463 ==

== ENCOUNTER → 2017-03-10 | Outpatient (CLI) | payer OTHER ==
[2017-03-10] MEDS: REGADENOSON 0.4 MG/5 ML DISP.SYRIN. IV (09:59)
== END | disposition home or self-care (01) ==
LOC: NM 08:11
DX: R07.9 Chest pain, unspecified (principal); R05 Cough; R06.09 Other forms of dyspnea
CPT/HCPCS: 78452; 93017; 96374; 96375; 96376; A9500; J2785

== ENCOUNTER → 2017-08-23 | Outpatient (CLI) | payer OTHER ==
[2017-08-24 04:17] LABS: MRSA BY PCR Negative (Negative)
== END | disposition home or self-care (01) ==
LOC: SURGPAT 13:24
DX: Z01.818 Encounter for other preprocedural examination (principal); M19.012 Primary osteoarthritis, left shoulder; I45.19 Other right bundle-branch block; I13.0 Hypertensive heart and chronic kidney disease with heart failure and stage 1 through stage 4 chronic kidney disease, or unspecified chronic kidney disease; I50.9 Heart failure, unspecified; N18.3 Chronic kidney disease, stage 3 (moderate); E78.5 Hyperlipidemia, unspecified; E78.00 Pure hypercholesterolemia, unspecified; K21.9 Gastro-esophageal reflux disease without esophagitis
CPT/HCPCS: 71046; 87641; 93005

== ENCOUNTER → 2017-09-18 | Outpatient (CLI) | payer OTHER | END | disposition home or self-care (01) | LOC: CT 11:56 | DX: I25.10 Atherosclerotic heart disease of native coronary artery without angina pectoris (principal); K82.8 Other specified diseases of gallbladder; I13.0 Hypertensive heart and chronic kidney disease with heart failure and stage 1 through stage 4 chronic kidney disease, or unspecified chronic kidney disease; I50.30 Unspecified diastolic (congestive) heart failure; N18.3 Chronic kidney disease, stage 3 (moderate); E78.5 Hyperlipidemia, unspecified; E78.00 Pure hypercholesterolemia, unspecified; E66.9 Obesity, unspecified; K21.9 Gastro-esophageal reflux disease without esophagitis; Z86.79 Personal history of other diseases of the circulatory system; Z87.891 Personal history of nicotine dependence; Z85.038 Personal history of other malignant neoplasm of large intestine; Z87.39 Personal history of other diseases of the musculoskeletal system and connective tissue; Z86.69 Personal history of other diseases of the nervous system and sense organs; Z90.49 Acquired absence of other specified parts of digestive tract | CPT/HCPCS: 71250 ==

== ENCOUNTER 2018-08-23 07:13 | Emergency (ER) | payer OTHER ==
[~2018-08-23] VITALS: Ht 190.5 cm; Wt 104.3 kg
[~2018-08-23 07:13] MED LIST changes: -AMLO10TA2; -AMLO10TA2 PO; +AMLO10TA8; +AMLO10TA8 PO; -ASPI81TA44 PO; +ASPI81TA59 PO; +ATOR40TA PO; +BUSP5TAB PO; -DILT120C80 PO; +DILT120C85 PO; +HYDR-2145 PO; -HYDR-2758; +HYDR-2761; -HYDR-2762 PO; +HYDR-2765 PO; -HYDR25TA9 PO; +MELO15TA23 PO; +MONT10TA49 PO; -MONT10TA9 PO; +NITR0.4T SL; +OXYC-411 PO; -OXYC1TAB9 PO; +TAMS0.4C2 PO
[2018-08-23 07:44] VITALS: BP 162/66
--- NOTE | 2018-08-23 08:21 | PHYS DOC ---
Past Medical History Past Medical History: A-Fib, Cancer, High Cholesterol, Hypertension, [place], Other Additional Past Medical Histor: SVT ,colon cancer, abd aneurysm Past Surgical History: Other Additional Past Surgical Histo: colon cancer resection, cardiac stents, aneurysm repair (10/21/13) Alcohol Use: Rarely Drug Use: Marijuana Adult General Chief Complaint Chief Complaint: UPPER EXTREMITY PAIN HPI HPI 78-year-old male presenting the emergency department today with right shoulder pain for the last 4 days. The pain is sharp in the right shoulder blade. It is worse when he lays on it and when he moves his shoulder. He denies nausea or diaphoresis. Review of systems is negative for abdominal pain diaphoresis. He denies the pain being a pressure sensation. All other review of systems is negative. ED course: 78-year-old male presenting with right shoulder pain. Clinical history is atypical for ACS. Given his history, we will do blood work and an EKG. Otherwise on examination he has pain with passive range of motion of the shoulder which is reproducible on palpation of the right shoulder musculature. Blood work is unremarkable including a negative troponin. Chest x-ray shows mild left atelectasis. Right shoulder x-ray shows nonspecific increased opacificatio n of the soft tissues of the right axillary region. On examination of this region patient is tender there. There is no erythematous of the skin. No mass palpable. We will refer the patient his primary physician for an MRI of the area in the next 2-4 days. The patient has been examined and was not found to have an emergency medical condition. The patient was then discharged home in stable condition to follow up with their primary care physician over the next 1-2 days. They were to return if their symptoms worsened or if they were concerned for any reason. They were also instructed to return to the emergency department if they were unable to get the recommended and appropriate follow-up. [id number] discharge instructions and return precautions were given. Patient's questions were answered to their satisfaction. Patient is comfortable with plan. Allergies Allergies Allergies Coded Allergies Type Severity Reaction Last Updated Verified morphine Allergy Intermediate "Hives" 02/22/16 Yes pneumococcal vaccine Adverse Reaction Intermediate Swelling 02/22/16 Yes Physical Exam Physical Exam Constitutional: Well developed, well nourished, no acute distress, non-toxic a ppearance. HENT: Normocephalic, atraumatic, bilateral external ears normal, oropharynx moist, no oral exudates, nose normal. [] Eyes: PERRLA, EOMI, conjunctiva normal, no discharge. Neck: Normal range of motion, no tenderness, supple, no stridor. Cardiovascular:Heart rate regular rhythm, no murmur [] Lungs & Thorax: Bilateral breath sounds clear to auscultation Abdomen: Bowel sounds normal, soft, no tenderness, no masses, no pulsatile masses. [] Skin: Warm, dry, no erythema, no rash. [] Back: No tenderness, no CVA tenderness. [] Extremities: Pain in the right shoulder with passive ROM. pos for tenderness in the shoulder. otherwise unremarkable. Neurologic: Alert and oriented X 3, normal motor function, normal sensory function, no focal deficits noted. [] Psychologic: Affect normal, judgement normal, mood normal. [] Current Patient Data Vital Signs Vital Signs Date Time Temp Pulse Resp B/P (MAP) Pulse Ox O2 Delivery O2 Flow Rate FiO2 08/23/18 07:44 96.2 58 18 162/66 (98) 97 Room Air 96.2 Lab Values Laboratory Tests Test 08/23/18 08:35 White Blood Count 6.8 x10^3/uL (4.0-11.0) Red Blood Count 4.67 x10^6/uL (4.30-5.70) Hemoglobin 13.3 g/dL (13.0-17.5) Hematocrit 39.8 % (39.0-53.0) Mean Corpuscular Volume 85 fL (79-100) Mean Corpuscular Hemoglobin 28 pg (25-35) Mean Corpuscular Hemoglobin Concent 33 g/dL (31-37) Red Cell Distribution Width 15.7 % (11.5-14.5) H Platelet Count 159 x10^3/uL (140-400) Neutrophils (%) (Auto) 78 % (31-73) H Lymphocytes (%) (Auto) 13 % (24-48) L Monocytes (%) (Auto) 8 % (0-9) Eosinophils (%) (Auto) 1 % (0-3) Basophils (%) (Auto) 1 % (0-3) Neutrophils # (Auto) 5.3 x10^3/uL (1.8-7.7) Lymphocytes # (Auto) 0.9 x10^3/uL (1.0-4.8) L Monocytes # (Auto) 0.5 x10^3/uL (0.0-1.1) Eosinophils # (Auto) 0.1 x10^3/uL (0.0-0.7) Basophils # (Auto) 0.0 x10^3/uL (0.0-0.2) Sodium Level 137 mmol/L (136-145) Potassium Level 4.2 mmol/L (3.5-5.1) Chloride Level 102 mmol/L (98-107) Carbon Dioxide Level 25 mmol/L (21-32) Anion Gap 10 (6-14) Blood Urea Nitrogen 25 mg/dL (8-26) Creatinine 2.0 mg/dL (0.7-1.3) H Estimated GFR (Cockcroft-Gault) 39.4 BUN/Creatinine Ratio 13 (6-20) Glucose Level 126 mg/dL (70-99) H Calcium Level 9.1 mg/dL (8.5-10.1) Total Bilirubin 0.3 mg/dL (0.2-1.0) Aspartate Amino Transferase (AST) 19 U/L (15-37) Alanine Aminotransferase (ALT) 21 U/L (16-63) Alkaline Phosphatase 93 U/L (46-116) Troponin I Quantitative < 0.017 ng/mL (0.000-0.055) Total Protein 8.4 g/dL (6.4-8.2) H Albumin 3.5 g/dL (3.4-5.0) Albumin/Globulin Ratio 0.7 (1.0-1.7) L Laboratory Tests 08/23/18 08:35 Laboratory Tests 08/23/18 08:35 EKG EKG [] Radiology/Procedures Radiology/Procedures [] Course & Med Decision Making Course & Med Decision Making Pertinent Labs and Imaging studies reviewed. (See chart for details) [] Dragon Disclaimer Dragon Disclaimer This electronic medical record was generated, in whole or in part, using a voice recognition dictation system. Departure Departure Impression: Primary Impression: Right shoulder pain Disposition: HOME, SELF-CARE Condition: STABLE Referrals: VIKY MOTT MD (PCP) Patient Instructions: Shoulder Pain Additional Instructions: Thank you for allowing us to participate in your care today. Return to the emergency department you have any new or worsening symptoms, or if you are concerned for any reason. Return to emergency department if you have any new or concerning symptoms including but not limited to fever, chills, nausea, vomiting, intractable pain, any new rashes, chest pain, shortness of air, uncontrolled bleeding, difficulty breathing, and/or vision loss. Follow up with your primary care physician within 1-2 days to get an MRI of the part of the shoulder abnormal on the xray in 2-4 days. Call your Primary Doctor tomorrow and inform them of your visit today. If you do not have a primary ca re provider we are happy to provide you with a list of our primary care providers contact information. This condition should be evaluated by your primary care physician and any recommended consulting services for continued management within 2 days after discharge. If at any time, you are having difficulty getting into your primary care doctor or a specialist, return to the emergency department. LEMUEL GUTIERREZ MD Aug 23, 2018 08:21
--- NOTE | 2018-08-23 08:35 | RAD ---
CHEST AP ONLY History: Right shoulder pain Comparison: August 23, 2017 Findings: Single view of the chest is submitted. Pericardial cardiac silhouette is similar. There is no pneumothorax or significant pleural fluid, tips of the costophrenic sulci not entirely included on this exam. There is likely mild left base atelectasis. Impression: 1. There is likely mild left base atelectasis. Electronically signed by: Óscar Painter MD (08/23/2018 8:32 AM) [id number]
--- NOTE | 2018-08-23 08:38 | RAD ---
SHOULDER 2+V RIGHT History: Right shoulder pain Comparison: None. Findings: 3 views of the right shoulder are submitted. There is mild degenerative change of the right acromioclavicular joint, also mild osteophyte formation associated with the acromion. No acute fracture or dislocation is identified. There is relative increased opacity of the soft tissues of the right axillary region. Impression: 1. No acute osseous abnormality is identified. There is mild degenerative change of the right shoulder. 2. There is nonspecific relative increased opacity in the soft tissues of the right axillary region for which clinical examination is advised. Electronically signed by: Óscar Painter MD (08/23/2018 8:35 AM) [id number]
[2018-08-23 08:57] LABS: BASO % 1 % (0-3); EOS # 0.1 x10^3/uL (0.0-0.7); EOS % 1 % (0-3); HEMATOCRIT 39.8 % (39.0-53.0); HEMOGLOBIN 13.3 g/dL (13.0-17.5); LYMPH # 0.9 x10^3/uL (1.0-4.8); LYMPH % 13 % (24-48); MEAN CORPUSCULAR HEMOGLOBIN 28 pg (25-35); MEAN CORPUSCULAR HGB CONC 33 g/dL (31-37); MEAN CORPUSCULAR VOLUME 85 fL (79-100); MONO # 0.5 x10^3/uL (0.0-1.1); MONO % 8 % (0-9); NEUT # 5.3 x10^3/uL (1.8-7.7); NEUT % 78 % (31-73); PLATELET COUNT 159 x10^3/uL (140-400); RED BLOOD COUNT 4.67 x10^6/uL (4.30-5.70); RED CELL DISTRIBUTION WIDTH 15.7 % (11.5-14.5); WHITE BLOOD COUNT 6.8 x10^3/uL (4.0-11.0)
[2018-08-23 09:17] LABS: CALCIUM 9.1 mg/dL (8.5-10.1); GFR 39.4; POTASSIUM 4.2 mmol/L (3.5-5.1)
[2018-08-23 09:22] LABS: ALBUMIN 3.5 g/dL (3.4-5.0); ALBUMIN/GLOBULIN RATIO 0.7 (1.0-1.7); TOTAL BILIRUBIN 0.3 mg/dL (0.2-1.0); TOTAL PROTEIN 8.4 g/dL (6.4-8.2)
[2018-08-23] MEDS ORDERED: HYDR-2761 PO (10:04)
[2018-08-23] MEDS ORDERED: CYCL5TAB PO (10:04)
--- NOTE | 2018-08-23 11:39 | EKG ---
[facility] [address] [place] [address] Test Date: 2018-08-23 Test Time: 08:28:12 Pat Name: LIAM MOSELEY Department: Room: Gender: M [employer] Manager: : 1940 Requested By: LEMUEL GUTIERREZ Order Number: [id number] Reading MD: Measurements Intervals [place] Rate: 52 P: 44 NM: 254 QRS: 0 QRSD: 84 T: 105 QT: 466 QTc: 435 Interpretive Statements SINUS RHYTHM PROLONGED NM INTERVAL LEFTWARD AXIS T ABNORMALITY IN HIGH LATERAL LEADS ABNORMAL ECG No previous ECG available for comparison
== END 2018-08-23 10:40 | disposition home or self-care (01) ==
LOC: ER 07:13
DX: M25.511 Pain in right shoulder (principal); I48.91 Unspecified atrial fibrillation; E78.00 Pure hypercholesterolemia, unspecified; I10 Essential (primary) hypertension; I25.2 Old myocardial infarction; Z95.5 Presence of coronary angioplasty implant and graft; Z88.5 Allergy status to narcotic agent; Z88.7 Allergy status to serum and vaccine
CPT/HCPCS: 36415; 71045; 73030; 80053; 84484; 85025; 85379; 93005; 99285-25